=== PATIENT | male | born 1955 | race African-American/Black ===

== ENCOUNTER 2017-05-09 22:28 | Emergency (ER) | payer OTHER ==
[~2017-05-09] VITALS: Ht 182.9 cm; Wt 113.4 kg
[~2017-05-09 22:28] MED LIST: ALPR0.25 PO; BENZ100C PO; BUPR75TA6 PO; DIPH25CA58 PO; HYDR12.53 PO; HYDR25CA PO; LISI10TA2 PO; OXYC10TA PO; PRED20TA PO; VALIUM10 MG PO; ZOLP10TA PO
[2017-05-09 23:08] VITALS: BP 149/92
[2017-05-09] MEDS ORDERED: HYDROcodone/APAP 5/325MG 1 TAB TABLET PO ONE (23:30)
[2017-05-10] MEDS ORDERED: HYDR-971 PO (00:02)
--- NOTE | 2017-05-10 00:02 | PHYS DOC ---
Past Medical History Past Medical History: Anxiety, Bronchitis, COPD, Diabetes-Type II, DVT, Hypertension, P.U.D., Other Additional Past Medical Histor: EMPHESEMA, blood clots/PE,CHRONIC PAIN Past Surgical History: Other Additional Past Surgical Histo: PVD LASER SUGERY LT LEG, dilatation, peptic ulcer; urethral reconstruction Alcohol Use: Occasionally Drug Use: None Adult General Chief Complaint Chief Complaint: MECHANICAL FALL HPI HPI Patient is a 61 year old gentleman with history significant for hypertension and diabetes as well as a pulmonary embolism who is currently not on any anticoagulants presents to the ER today after falling off a partition wall while he is trying to jump over it. Patient reports that he currently has pain to his left lower extremities as well as his left chest. Patient denies any head trauma. Patient has any loss of consciousness. Patient denies any fevers shakes chills nausea vomiting diarrhea chest pain terns of breath cough cold Raynaud's except for the pain and discomfort to his left flank region from the fall. Patient does occasionally smoke and occasionally drinks. Patient reports he was drink a little bit of alcohol earlier tonight. Patient has any drugs. Exam was significant for tenderness to palpation to his left knee as well as left tib-fib region. Patient had no ligament is laxity. Patient has no knee effusion. Patient was ambulating on it without any difficulty. Patient does have tenderness to palpation to his left flank. Patient's workup was negative for any fractures. Patient had an x-ray of his left knee which was negative for fracture as interpreted by Dr. Chi Left tib-fib x-ray negative for fracture as interpreted by Dr. Chi Chest x-ray negative for any rib fracture or pneumothorax as interpreted by Dr. Chi Assessment and plan This 61-year-old gentleman who presents here today complaining of lower 70 pain and chest wall pain after a fall. Patient has no fractures noted on x-rays. Patient be discharged home on Lortab and follow-up with his doctor as scheduled tomorrow. Review of Systems Review of Systems Constitutional: Denies fever or chills [] Eyes: Denies change in visual acuity, redness, or eye pain [] All other review systems are negative except as documented in the history of present illness portion. Current Medications Current Medications Current Medications Medications (Trade) Dose Ordered Sig/Ashli Start Time Stop Time Status Last Admin Dose Admin Acetaminophen/ Hydrocodone Bitart (Lortab 5/325) 1 tab 1X ONCE 05/09/17 23:30 05/09/17 23:31 DC 05/09/17 23:13 1 TAB Allergies Allergies Allergies Coded Allergies Type Severity Reaction Last Updated Verified Iodinated Contrast- Oral and IV Dye Allergy Intermediate Hives 10/16/16 Yes Physical Exam Physical Exam Constitutional: Well developed, well nourished, no acute distress, non-toxic appearance. [] HENT: Normocephalic, atraumatic, bilateral external ears normal, oropharynx moist, no oral exudates, nose normal. [] Eyes: PERRLA, EOMI, conjunctiva normal, no discharge. [] Neck: Normal range of motion, no tenderness, supple, no stridor. [] Cardiovascular:Heart rate regular rhythm, no murmur [] Lungs & Thorax: Bilateral breath sounds clear to auscultation [] Abdomen: Bowel sounds normal, soft, no tenderness, no masses, no pulsatile masses. [] Skin: Warm, dry, no erythema, no rash. [] Back: No tenderness, no CVA tenderness. [] Extremities:see above Neurologic: Alert and oriented X 3, normal motor function, normal sensory function, no focal deficits noted. [] Psychologic: Affect normal, judgement normal, mood normal. [] Current Patient Data Vital Signs Vital Signs Date Time Temp Pulse Resp B/P (MAP) Pulse Ox O2 Delivery O2 Flow Rate FiO2 05/09/17 23:13 18 Room Air 05/09/17 23:08 98.5 74 149/92 (111) 95 98.5 EKG EKG [] Radiology/Procedures Radiology/Procedures [] Course & Med Decision Making Course & Med Decision Making Pertinent Labs and Imaging studies reviewed. (See chart for details) [] Dragon Disclaimer Dragon Disclaimer This electronic medical record was generated, in whole or in part, using a voice recognition dictation system. Departure Departure Impression: Primary Impression: Rib pain Additional Impressions: Left knee sprain Traumatic ecchymosis of left lower leg Disposition: 01 HOME, SELF-CARE Condition: IMPROVED Referrals: FRANCE WEN MD (PCP) Patient Instructions: Knee Sprain Scripts Hydrocodone/Apap 5-325 (NORCO 5-325 TABLET) 1 Each Tablet 1 TAB PO QID Y for PAIN, #10 TAB Prov: TIFFANY HUDDLESTON MD 05/10/17 Problem Qualifiers Additional Impressions: Left knee sprain Encounter type: initial encounter Involved ligament of knee: other ligament Qualified Codes: S83.8X2A - Sprain of other specified parts of left knee, initial encounter Traumatic ecchymosis of left lower leg Encounter type: initial encounter Qualified Codes: S80.12XA - Contusion of left lower leg, initial encounter TIFFANY HUDDLESTON MD May 10, 2017 00:02
[2017-05-10] MEDS ORDERED: HYDROcodone/APAP 5/325MG 1 TAB TABLET PO ONE (00:30)
--- NOTE | 2017-05-10 07:39 | RAD ---
EXAM: Chest 2 views. HISTORY: Trauma, fall. COMPARISON: None. FINDINGS: Frontal and lateral views of the chest are obtained. Hyperinflation is consistent with chronic obstructive pulmonary disease. There is mild chronic atelectasis or scarring in the left base. Enlargement of the pulmonary arteries suggests pulmonary arterial hypertension. There is no pneumothorax or pleural effusion. The heart is not enlarged. Mild superior plate wedging of multiple midthoracic vertebral bodies may be developmental or reflect chronic compression deformities. IMPRESSION: 1. Chronic obstructive pulmonary disease. No confluent infiltrates. Correlate for pulmonary arterial hypertension.
--- NOTE | 2017-05-10 07:41 | RAD ---
EXAM: 1. Left knee 3 views. 2. Left tibia/fibula 2 views. HISTORY: Trauma, fall. COMPARISON: None. FINDINGS: There are no fractures throughout. The joint spaces and alignment of the left knee are maintained. There is no joint effusion. The joint spaces and alignment of the ankle are also grossly maintained. Subcutaneous varicosities are noted. IMPRESSION: 1. No fracture.
== END 2017-05-10 00:30 | disposition home or self-care (01) ==
LOC: ER 22:28
DX: S83.92XA Sprain of unspecified site of left knee, initial encounter (principal); S80.12XA Contusion of left lower leg, initial encounter; R07.81 Pleurodynia; R07.89 Other chest pain; F41.9 Anxiety disorder, unspecified; E11.9 Type 2 diabetes mellitus without complications; I10 Essential (primary) hypertension; G89.29 Other chronic pain; J43.9 Emphysema, unspecified; I73.9 Peripheral vascular disease, unspecified; Z86.718 Personal history of other venous thrombosis and embolism; Z87.11 Personal history of peptic ulcer disease; Z86.711 Personal history of pulmonary embolism; Z91.041 Radiographic dye allergy status; W13.8XXA Fall from, out of or through other building or structure, initial encounter; Y93.39 Activity, other involving climbing, rappelling and jumping off; Y92.89 Other specified places as the place of occurrence of the external cause; Y99.8 Other external cause status
CPT/HCPCS: 71020; 73562; 73590; 99284-25

== ENCOUNTER 2018-10-02 14:45 | Emergency (ER) | payer OTHER ==
[~2018-10-02] VITALS: Ht 182.9 cm; Wt 113.4 kg
[~2018-10-02 14:45] MED LIST changes: +HYDR-971 PO
[2018-10-02] MEDS ORDERED: predniSONE 10 MG TABLET PO ONE (15:30)
[2018-10-02] MEDS ORDERED: IPRATRPIUM/ALBUTEROL 0.5/2.5MG 3 ML NEBU. NEB ONE (15:30)
--- NOTE | 2018-10-02 15:39 | RAD ---
PA and lateral chest. HISTORY: Productive cough, wheezing, short of breath, history COPD PA and lateral views the chest show mild apical scarring. Lungs are free of acute infiltrates. Heart is normal in size. There is no pleural effusion. IMPRESSION: 1. No acute infiltrates. Electronically signed by: Roman Hughes MD (10/02/2018 3:36 PM) [facility]
--- NOTE | 2018-10-02 15:45 | PHYS DOC ---
Past Medical History Past Medical History: Anxiety, Bronchitis, COPD, Diabetes-Type II, DVT, Hypertension, P.U.D., Other Additional Past Medical Histor: EMPHESEMA, blood clots/PE,CHRONIC PAIN Past Surgical History: Other Additional Past Surgical Histo: PVD LASER SUGERY LT LEG, dilatation, peptic ulcer; urethral reconstruction Alcohol Use: Occasionally Drug Use: None Adult General Chief Complaint Chief Complaint: COUGH HPI HPI Patient is a 62 year old male who presents with cough and shortness of breath. The patient has been having cough and cold symptoms that have been worsening over the past week. He is coughing up phlegm. The patient does have a history of smoking and COPD. He is currently homeless and has not been using inhalers. He denies fever or chest pain. Review of Systems Review of Systems Constitutional: Denies fever or chills [] Eyes: Denies change in visual acuity, redness, or eye pain [] HENT: See history of present illness Respiratory: See history of present illness Cardiovascular: No additional information not addressed in HPI [] GI: Denies abdominal pain, nausea, vomiting, bloody stools or diarrhea [] : Denies dysuria or hematuria [] Musculoskeletal: Denies back pain or joint pain [] Integument: Denies rash or skin lesions [] Neurologic: Denies headache, focal weakness or sensory changes [] Endocrine: Denies polyuria or polydipsia [] All other systems were reviewed and found to be within normal limits, except as documented in this note. Current Medications Current Medications Current Medications Medications (Trade) Dose Ordered Sig/Ashli Start Time Stop Time Status Last Admin Dose Admin Acetaminophen/ Hydrocodone Bitart (Lortab 5/325) 1 tab 1X ONCE 10/02/18 16:30 10/02/18 16:31 DC 10/02/18 16:56 1 TAB Albuterol/ Ipratropium (Duoneb) 3 ml 1X ONCE 10/02/18 15:30 10/02/18 15:31 DC 10/02/18 15:05 3 ML Prednisone (Prednisone) 50 mg 1X ONCE 10/02/18 15:30 10/02/18 15:31 DC 10/02/18 15:28 50 MG Allergies Allergies Allergies Coded Allergies Type Severity Reaction Last Updated Verified Iodinated Contrast- Oral and IV Dye Allergy Intermediate Hives 10/16/16 Yes Physical Exam Physical Exam Constitutional: Well developed, well nourished, no acute distress, non-toxic appearance. [] HENT: Normocephalic, atraumatic, bilateral tympanic membranes normal, oropharynx moist, no oral exudates, nares are erythematous bilaterally Eyes: PERRLA, EOMI, conjunctiva normal, no discharge. [] Neck: Normal range of motion, no tenderness, supple, no stridor. [] Cardiovascular:Heart rate regular rhythm, no murmur [] Lungs & Thorax: Bilateral breath sounds are decreased at bases Abdomen: Bowel sounds normal, soft, no tenderness, no masses, no pulsatile masses. [] Skin: Warm, dry, no erythema, no rash. [] Neurologic: Alert and oriented X 3, normal motor function, normal sensory function, no focal deficits noted. [] Psychologic: Affect normal, judgement normal, mood normal. [] Current Patient Data Vital Signs Vital Signs Date Time Temp Pulse Resp B/P (MAP) Pulse Ox O2 Delivery O2 Flow Rate FiO2 10/02/18 15:07 97 Room Air 10/02/18 14:58 99.1 101 20 157/90 (112) 99.1 EKG EKG [] Radiology/Procedures Radiology/Procedures []PATIENT: VANNESSA ZAMORAOUNT: [id number]#: [id number] : 1955 LOCATION: ER AGE: 62 SEX: M EXAM STATUS: REG ER ORD. PHYSICIAN: TANO RODAS APRN REASON: cough x 2 weeks PROCEDURE: CHEST PA & LATERAL PA and lateral chest. HISTORY: Productive cough, wheezing, short of breath, history COPD PA and lateral views the chest show mild apical scarring. Lungs are free of acute infiltrates. Heart is normal in size. There is no pleural effusion. IMPRESSION: 1. No acute infiltrates. Electronically signed by: Roman Hughes MD (10/02/2018 3:36 PM) [facility] DICTATED and SIGNED BY: ROMAN HUGHES MD DATE: 10/02/18 1535 Course & Med Decision Making Course & Med Decision Making Pertinent Labs and Imaging studies reviewed. (See chart for details) []The patient was given prednisone and a breathing treatment in the emergency department. His breath sounds are clear following this treatment. He will be discharged home with an inhaler. He ate a meal while he was in the emergency department. He states that his sister will be able to pick him up. Jason Disclaimer Jason Disclaimer This electronic medical record was generated, in whole or in part, using a voice recognition dictation system. Departure Departure Impression: Primary Impression: Cough Disposition: HOME, SELF-CARE Condition: STABLE Referrals: JAZ KINSEY (PCP) Patient Instructions: Cough, Adult Additional Instructions: Use the inhaler for shortness of breath. Follow-up with your primary care provider for recheck in 2 days if not improving or return to the emergency department if worsening. Scripts Albuterol Sulfate (PROAIR HFA INHALER) 8.5 Gm Hfa.aer.ad 1 PUFF INH PRN Q6HRS PRN for SHORTNESS OF BREATH, #1 INHALER 0 Refills Prov: TANO RODAS APRN 10/02/18 TANO RODAS APRN Oct 02, 2018 15:45
[2018-10-02] MEDS ORDERED: HYDROcodone/APAP 5/325MG 1 TAB TABLET PO ONE (16:30)
[2018-10-02] MEDS ORDERED: PROAIR HFA8.5 GM INH (16:35)
[2018-10-02 17:00] VITALS: BP 140/76
== END 2018-10-02 17:01 | disposition home or self-care (01) ==
LOC: ER 14:45
DX: R05 Cough (principal); R06.02 Shortness of breath; E11.9 Type 2 diabetes mellitus without complications; I10 Essential (primary) hypertension; G89.29 Other chronic pain; J43.9 Emphysema, unspecified; Z86.718 Personal history of other venous thrombosis and embolism; Z91.041 Radiographic dye allergy status
CPT/HCPCS: 71046; 94640; 99284; J7512; J7620

== ENCOUNTER 2019-07-17 13:05 | Emergency (ER) | payer MEDICAID, OTHER ==
[~2019-07-17] VITALS: Ht 182.9 cm; Wt 99.8 kg
[~2019-07-17 13:05] MED LIST changes: +ALBU2.5V8 INH; +HYDR-3164 PO; -HYDR-971 PO; -HYDR12.53 PO; +HYDR12.575 PO
[2019-07-17 14:18] VITALS: BP 160/94
--- NOTE | 2019-07-17 14:29 | PHYS DOC ---
Past Medical History Past Medical History: Anxiety, Bronchitis, COPD, Diabetes-Type II, DVT, H ypertension, P.U.D., Other Additional Past Medical Histor: EMPHESEMA, blood clots/PE,CHRONIC PAIN Past Surgical History: Other Additional Past Surgical Histo: PVD LASER SUGERY LT LEG, dilatation, peptic ulcer; urethral reconstruction Alcohol Use: Occasionally Drug Use: None Adult General Chief Complaint Chief Complaint: WOUND CHECK HPI HPI Patient is a 63 year old male presents to the ED to have his medical records sent to the Health dept so he can donate plasma. Patient has a history of chronic venous insufficiency. States that they want his full medical records that are up-to-date sent to the donation center in order for him to donate plasma.Patient does not have a PCP. Complains of no symptoms. Review of Systems Review of Systems Constitutional: Denies fever or chills [] Eyes: Denies change in visual acuity, redness, or eye pain [] HENT: Denies nasal congestion or sore throat [] Respiratory: Denies cough or shortness of breath [] Cardiovascular: No additional information not addressed in HPI [] GI: Denies abdominal pain, nausea, vomiting, bloody stools or diarrhea [] : Denies dysuria or hematuria [] Musculoskeletal: Denies back pain or joint pain [] Integument: Denies rash or skin lesions [] Neurologic: Denies headache, focal weakness or sensory changes [] Endocrine: Denies polyuria or polydipsia [] All other systems were reviewed and found to be within normal limits, except as documented in this note. Allergies Allergies Allergies Coded Allergies Type Severity Reaction Last Updated Verified Iodinated Contrast Media Allergy Intermediate Hives 10/16/16 Yes Physical Exam Physical Exam Constitutional: Well developed, well nourished, no acute distress, non-toxic appearance. [] HENT: Normocephalic, atraumatic Skin: Warm, dry, no erythema, no rash. [] Back: No tenderness, no CVA tenderness. [] Extremities: No tenderness, no cyanosis, no clubbing, ROM intact, no edema. [] Neurologic: Alert and oriented X 3, normal motor function, normal sensory function, no focal deficits noted. [] Psychologic: Affect normal, judgement normal, mood normal. [] EKG EKG [] Radiology/Procedures Radiology/Procedures [] Course & Med Decision Making Course & Med Decision Making Pertinent Labs and Imaging studies reviewed. (See chart for details) []Provided PCP list for patient to make an appointment and establish under a PCP in order to have his records sent to plasma donation center. Patient has no physical complaints. Dragon Disclaimer Dragon Disclaimer This electronic medical record was generated, in whole or in part, using a voice recognition dictation system. Departure Departure Impression: Primary Impression: Medical report requested Disposition: HOME, SELF-CARE Condition: IMPROVED Referrals: NO PCP (PCP) JOSE CURIEL MD Patient Instructions: Medical Screening Exam SANTI KENNY Jul 17, 2019 14:29
== END 2019-07-17 14:35 | disposition home or self-care (01) ==
LOC: ER 13:05
DX: Z02.79 Encounter for issue of other medical certificate (principal); E11.9 Type 2 diabetes mellitus without complications; F41.9 Anxiety disorder, unspecified; J44.9 Chronic obstructive pulmonary disease, unspecified; I10 Essential (primary) hypertension; Z86.718 Personal history of other venous thrombosis and embolism; G89.29 Other chronic pain; Z91.041 Radiographic dye allergy status
CPT/HCPCS: 99284

== ENCOUNTER 2020-01-08 09:06 | Emergency (ER) | payer MEDICAID ==
[~2020-01-08] VITALS: Ht 182.9 cm; Wt 109.0 kg
--- NOTE | 2020-01-08 10:36 | PHYS DOC ---
Past Medical History Past Medical History: Anxiety, Bronchitis, COPD, Diabetes-Type II, DVT, H ypertension, P.U.D., Other Additional Past Medical Histor: EMPHESEMA, blood clots/PE,CHRONIC PAIN Past Surgical History: Other Additional Past Surgical Histo: PVD LASER SUGERY LT LEG, dilatation, peptic ulcer; urethral reconstruction Smoking Status: Current Every Day Smoker Alcohol Use: Occasionally Drug Use: None Adult General Chief Complaint Chief Complaint: FLU SYMPTOM HPI HPI Patient is a 64 year old male who presents with headache, cough, runny nose, body aches, fatigue that started yesterday. The patient also states that he has been out of his blood pressure medicine. The patient denies any symptoms related to blood pressure. He denies blurry vision or nausea. Reports he struggles with chronic pain is also requesting a narcotic refill due to chronic back pain. Complete ROS were reviewed and found to be within normal limits, except as documented in the HPI Current Medications Current Medications Current Medications Medications (Trade) Dose Ordered Sig/Ashli Start Time Stop Time Status Last Admin Dose Admin Lisinopril (Prinivil) 20 mg 1X STAT 01/08/20 10:29 01/08/20 10:34 DC 01/08/20 10:39 20 MG Allergies Allergies Allergies Coded Allergies Type Severity Reaction Last Updated Verified Iodinated Contrast Media Allergy Intermediate Hives 10/16/16 Yes Physical Exam Physical Exam Constitutional: Well developed, well nourished, no acute distress, non-toxic appearance. [] HENT: Normocephalic, atraumatic, bilateral external ears normal, bilateral tympanic membranes are pearly saucedo, oropharynx moist, no oral exudates, nose turbinates are inflamed. Eyes: PERRLA, EOMI, conjunctiva normal, no discharge. [] Neck: Normal range of motion, no tenderness, supple, no stridor. [] Cardiovascular:Heart rate regular rhythm, no murmur [] Lungs & Thorax: Bilateral breath sounds clear to auscultation [] Abdomen: Bowel sounds normal, soft, no tenderness, no masses, no pulsatile masses. [] Skin: Warm, dry, no erythema, no rash. [] Neurologic: Alert and oriented X 3, normal motor function, normal sensory function, no focal deficits noted. [] Psychologic: Affect normal, judgement normal, mood normal. [] Current Patient Data Vital Signs Vital Signs Date Time Temp Pulse Resp B/P (MAP) Pulse Ox O2 Delivery O2 Flow Rate FiO2 01/08/20 11:28 76 177/79 (111) 01/08/20 10:27 16 95 Room Air 01/08/20 10:08 98.1 98.1 Lab Values Laboratory Tests Test 01/08/20 10:20 Influenza Type A Antigen Negative (NEGATIVE) Influenza Type B Antigen Negative (NEGATIVE) EKG EKG [] Radiology/Procedures Radiology/Procedures [][facility] [address] [place] [address] IMAGING REPORT Signed PATIENT: VANNESSA ZAMORA ACCOUNT: [id number] : 1955 LOCATION: ER AGE: 64 SEX: M EXAM STATUS: REG ER ORD. PHYSICIAN: JOSE HURST APRN REASON: coughX 1MONTH PROCEDURE: CHEST PA & LATERAL CHEST PA LATERAL Clinical indications: Cough for a month COMPARISON: October 02, 2018. Findings: Hyperinflation is seen consistent with COPD. No acute lung infiltrate or pleural effusion or pulmonary edema or lung mass or pneumothorax is seen. The heart size, pulmonary vasculature, mediastinum and both josh are unremarkable. The osseous structures appear intact. Impression: COPD. No acute radiographic abnormality is seen. Electronically signed by: Nivia Newsome MD (01/08/2020 10:52 AM) [facility] DICTATED and SIGNED BY: NIVIA NWESOME MD DATE: 01/08/20 1052 Course & Med Decision Making Course & Med Decision Making Pertinent Labs and Imaging studies reviewed. (See chart for details) Will give 20 mg of Lisinopril as this is what patient states he is supposed to be on. Will also write a 30 day supply and discussed that he needs to follow up with a primary care provider. Will get flu test and chest x-ray. FLU and Chest x-ray are unremarkable. Patient appears to have an URI. Dragon Disclaimer Dragon Disclaimer This electronic medical record was generated, in whole or in part, using a voice recognition dictation system. Departure Departure Impression: Primary Impression: Medication refill Additional Impression: Bronchitis Disposition: HOME, SELF-CARE Condition: STABLE Referrals: NO PCP (PCP) Patient Instructions: Medication Refill, Emergency Department Additional Instructions: Thank you for visiting [facility]. We appreciate you trusting us with your care. If any additional problems come up don't hesitate to return to visit us. Please follow up with your primary care provider so they can plan additional care if needed and know about the problem that you had. If symptoms worsen come back to the Emergency Department. Any concerning symptoms that start such as chest pain, shortness of air, weakness or numbness on one side of the body, running high fevers or any other concerning symptoms return to the ER. Please fill your medications at any pharmacy and follow the prescription instructions. Please go to your primary care doctor in the future for refills. Please drink plenty of fluids. If unable to keep fluids down please return to ER. Please get Tylenol and Ibuprofen over the counter. Give each medication every 6 hours as directed by the medication labels. In order to utilize the peak of the medications stagger the medications to where the child is getting one of the medications every 3 hours. For example if you give Ibuprofen at 3 PM, you then give Tylenol at 6 PM and Ibuprofen again at 9 PM, and then Tylenol at midnight. Please get Zyrtec over the counter and take per label instructions for runny nose. Scripts Albuterol Sulfate (PROAIR HFA INHALER) 8.5 Gm Hfa.aer.ad 2 PUFF IH PRN Q4-6HRS PRN for wheezing for 21 Days, #1 INHALER 0 Refills Prov: JOSE HURST APRN 01/08/20 Lisinopril (LISINOPRIL) 20 Mg Tablet 1 TAB PO DAILY, #30 TAB 0 Refills Prov: JOSE HURST APRN 01/08/20 Problem Qualifiers JOSE HURST APRN Jan 08, 2020 10:36
[2020-01-08] MEDS: LISINOPRIL 10 MG TABLET PO STA (10:39)
--- NOTE | 2020-01-08 10:55 | RAD ---
CHEST PA LATERAL Clinical indications: Cough for a month COMPARISON: October 02, 2018. Findings: Hyperinflation is seen consistent with COPD. No acute lung infiltrate or pleural effusion or pulmonary edema or lung mass or pneumothorax is seen. The heart size, pulmonary vasculature, mediastinum and both josh are unremarkable. The osseous structures appear intact. Impression: COPD. No acute radiographic abnormality is seen. Electronically signed by: Lti Newsome MD (01/08/2020 10:52 AM) [facility]
[2020-01-08 11:17] LABS: INFLUENZA A PATIENT NEGATIVE (NEGATIVE); INFLUENZA B PATIENT NEGATIVE (NEGATIVE)
[2020-01-08] MEDS ORDERED: LISI-334 PO (11:25)
[2020-01-08 11:28] VITALS: BP 177/79
[2020-01-08] MEDS ORDERED: ALBU2.5V8 IH (11:31)
== END 2020-01-08 11:40 | disposition home or self-care (01) ==
LOC: ER 09:06
DX: J44.9 Chronic obstructive pulmonary disease, unspecified (principal); Z76.0 Encounter for issue of repeat prescription; E11.9 Type 2 diabetes mellitus without complications; I10 Essential (primary) hypertension; G89.29 Other chronic pain; Z86.718 Personal history of other venous thrombosis and embolism; F17.200 Nicotine dependence, unspecified, uncomplicated; Z91.041 Radiographic dye allergy status
CPT/HCPCS: 71046; 87804; 99284

== ENCOUNTER 2020-12-27 11:28 | Inpatient (IN) | payer MEDICAID ==
[~2020-12-27] VITALS: Ht 182.9 cm; Wt 109.2 kg
[~2020-12-27 11:28] MED LIST changes: +ALBU2.5V8 IH; +LISI10TA16 PO; -LISI10TA2 PO; +LISI20TA18 PO
--- NOTE | 2020-12-27 12:02 | ED.ADGEN ---
Past Medical History Past Medical History: Anxiety, Bronchitis, COPD, Diabetes-Type II, DVT, Hypertension, P.U.D., Other Additional Past Medical Histor: Emphysema, blood clots/PE,CHRONIC PAIN, collapsed lung Past Surgical History: Other Additional Past Surgical Histo: PVD LASER SUGERY LT LEG, dilatation, peptic ulcer; urethral reconstruction Smoking Status: Current Some Day Smoker Alcohol Use: Occasionally Drug Use: None General Adult EDM: Chief Complaint: MULTIPLE COMPLAINTS HPI: HPI: Patient is a 65 year old AA male who presents to the ER with complaints of swelling in both of his hands and legs, shortness of breath, body aches, and upper abdominal pain for several days. Pt reports sx for at least a week. He denies any chest pain, palpitations, nausea, vomiting, diarrhea, cough, or dizziness. Pt complains of R ear pain and sinus pressure. Pt states that he lost his PCP last year and has not had a routine physical in over a year. He reports that his blood pressure has been high recently and requests a refill of his blood pressure medication Lisinopril. Pt describes his abdominal pain pain as a burning sensation. He currently rates his pain a 8/10 on the pain scale, he denies any alleviating or exacerbating factors. Review of Systems: Review of Systems: Complete ROS is negative unless otherwise documented in the HPI Current Medications: Current Medications Medications (Trade) Dose Ordered Sig/Ashli Start Time Stop Time Status Last Admin Dose Admin Ceftriaxone Sodium (Rocephin) 1 gm 1X ONCE 12/27/20 12:30 12/27/20 12:31 DC 12/27/20 12:52 1 GM Diphenhydramine HCl (Benadryl) 50 mg 1X ONCE 12/27/20 13:30 12/27/20 13:31 DC 12/27/20 13:53 50 MG Famotidine (Pepcid Vial) 20 mg 1X ONCE 12/27/20 12:30 12/27/20 12:31 DC 12/27/20 13:00 20 MG Fentanyl Citrate (Fentanyl 2ml Vial) 50 mcg 1X ONCE 12/27/20 12:15 12/27/20 12:16 DC 12/27/20 13:03 50 MCG Info (CONTRAST GIVEN -- Rx MONITORING) 1 each PRN DAILY PRN 12/27/20 14:15 12/29/20 14:14 Iohexol (Omnipaque 350 Mg/ml) 100 ml 1X ONCE 12/27/20 14:00 12/27/20 14:05 DC 12/27/20 14:15 100 ML Methylprednisolone Sodium Succinate (SOLU-Medrol 125MG VIAL) 125 mg 1X ONCE 12/27/20 13:30 12/27/20 13:31 DC 12/27/20 13:56 125 MG Ondansetron HCl (Zofran) 4 mg 1X ONCE 12/27/20 12:15 12/27/20 12:16 DC 12/27/20 12:58 4 MG Allergies: Allergies: Allergies Coded Allergies Type Severity Reaction Last Updated Verified Iodinated Contrast Media Allergy Intermediate Hives 12/27/20 Yes Physical Exam: PE: Constitutional: Well developed, well nourished, no acute distress, non-toxic appearance. [] HENT: Normocephalic, atraumatic, bilateral external ears normal, bilateral TMs normal, oropharynx moist, no oral exudates, nose normal. [] Eyes: PERRLA, EOMI, conjunctiva normal, no discharge. [] Neck: Normal range of motion, supple, no stridor. [] Cardiovascular:Heart rate regular rhythm Lungs & Thorax: respirations even and unlabored, speaking full sentences, occasional expiratory wheeze Abdomen:soft, epigastricTTP, no rebound tenderness, no guarding, no masses, no pulsatile masses. [] Skin: Warm, dry, no erythema, no rash. [] Extremities: BLE: No tenderness, no cyanosis, no clubbing, ROM intact, 3+ edema; 1+ edema of bilateral hands Neurologic: Alert and oriented X 3, normal motor function, normal sensory function, no focal deficits noted. [] Psychologic: Affect normal, judgement normal, mood normal. [] Current Patient Data: Labs: Laboratory Tests Test 12/27/20 11:35 12/27/20 12:10 Urine Collection Type Unknown Urine Color Yellow Urine Clarity Clear Urine pH 6.0 (<5.0-8.0) Urine Specific [place] 1.015 (1.000-1.030) Urine Protein Negative mg/dL (NEG-TRACE) Urine Glucose (UA) Negative mg/dL (NEG) Urine Ketones (Stick) Negative mg/dL (NEG) Urine Blood Trace (NEG) Urine Nitrite Negative (NEG) Urine Bilirubin Negative (NEG) Urine Urobilinogen Dipstick 1.0 mg/dL (0.2 mg/dL) Urine Leukocyte Esterase Moderate (NEG) Urine RBC 1-2 /HPF (0-2) Urine WBC 11-20 /HPF (0-4) Urine Squamous Epithelial Cells Few /LPF Urine Bacteria Few /HPF (0-FEW) Urine Opiates Screen Neg (NEG) Urine Methadone Screen Neg (NEG) Urine Barbiturates Neg (NEG) Urine Phencyclidine Screen Neg (NEG) Urine Amphetamine/Methamphetamine Neg (NEG) Urine Benzodiazepines Screen Neg (NEG) Urine Cocaine Screen Pos (NEG) Urine Cannabinoids Screen Neg (NEG) Urine Ethyl Alcohol Neg (NEG) White Blood Count 6.2 x10^3/uL (4.0-11.0) Red Blood Count 4.27 x10^6/uL (4.30-5.70) L Hemoglobin 13.3 g/dL (13.0-17.5) Hematocrit 40.6 % (39.0-53.0) Mean Corpuscular Volume 95 fL (79-100) Mean Corpuscular Hemoglobin 31 pg (25-35) Mean Corpuscular Hemoglobin Concent 33 g/dL (31-37) Red Cell Distribution Width 14.4 % (11.5-14.5) Platelet Count 166 x10^3/uL (140-400) Neutrophils (%) (Auto) 65 % (31-73) Lymphocytes (%) (Auto) 20 % (24-48) L Monocytes (%) (Auto) 12 % (0-9) H Eosinophils (%) (Auto) 3 % (0-3) Basophils (%) (Auto) 0 % (0-3) Neutrophils # (Auto) 4.1 x10^3/uL (1.8-7.7) Lymphocytes # (Auto) 1.2 x10^3/uL (1.0-4.8) Monocytes # (Auto) 0.7 x10^3/uL (0.0-1.1) Eosinophils # (Auto) 0.2 x10^3/uL (0.0-0.7) Basophils # (Auto) 0.0 x10^3/uL (0.0-0.2) D-Dimer (Rosalinda) 1.86 ug/mlFEU (0.00-0.50) H Sodium Level 143 mmol/L (136-145) Potassium Level 4.0 mmol/L (3.5-5.1) Chloride Level 106 mmol/L (98-107) Carbon Dioxide Level 26 mmol/L (21-32) Anion Gap 11 (6-14) Blood Urea Nitrogen 19 mg/dL (8-26) Creatinine 1.2 mg/dL (0.7-1.3) Estimated GFR (Cockcroft-Gault) 73.3 BUN/Creatinine Ratio 16 (6-20) Glucose Level 84 mg/dL (70-99) Calcium Level 8.2 mg/dL (8.5-10.1) L Magnesium Level 2.1 mg/dL (1.8-2.4) Total Bilirubin 0.6 mg/dL (0.2-1.0) Aspartate Amino Transferase (AST) 19 U/L (15-37) Alanine Aminotransferase (ALT) 30 U/L (16-63) Alkaline Phosphatase 105 U/L (46-116) Creatine Kinase 233 U/L (39-308) Creatine Kinase MB (Mass) 0.9 ng/mL (0.0-3.6) Creatine Kinase MB Relative Index 0.4 % (0-4) Troponin I Quantitative < 0.017 ng/mL (0.000-0.055) SO-Hfs-K-Type Natriuretic Peptide 822 pg/mL (0-124) H Total Protein 6.9 g/dL (6.4-8.2) Albumin 3.4 g/dL (3.4-5.0) Albumin/Globulin Ratio 1.0 (1.0-1.7) Lipase 56 U/L (73-393) L Laboratory Tests 12/27/20 12:10 Laboratory Tests 12/27/20 12:10 Vital Signs: Vital Signs Date Time Temp Pulse Resp B/P (MAP) Pulse Ox O2 Delivery O2 Flow Rate FiO2 12/27/20 16:18 64 22 98 Nasal Cannula 2.0 12/27/20 15:47 141/97 (112) 12/27/20 11:34 98.1 98.1 EKG: EK- Sinus rhythm rate 95, no STEMI read by Dr. Buitrago[] Heart Score: Risk Factors: Risk Factors: DM, Current or recent (<one month) smoker, HTN, HLP, family history of CAD, obesity. Risk Scores: Score 0 - 3: 2.5% MACE over next 6 weeks - Discharge Home Score 4 - 6: 20.3% MACE over next 6 weeks - Admit for Clinical Observation Score 7 - 10: 72.7% MACE over next 6 weeks - Early Invasive Strategies Radiology/Procedures: Radiology/Procedures: PROCEDURE: CHEST AP ONLY INDICATION: Reason: chest pain / Spl. Instructions: / History: COMPARISON: December 2019 FINDINGS: Single view of chest obtained. Cardiomediastinal silhouette is near the upper limits of normal in size. Coarsened lung markings bilaterally with mild interstitial opacity. IMPRESSION: * Mild interstitial opacities bilaterally which could be from pulmonary edema or interstitial infiltrate.[] PROCEDURE: CT ANGIOGRAPHY CHEST EXAM: CT chest with contrast - pulmonary embolus protocol CLINICAL HISTORY: Shortness of air, elevated d-dimer COMPARISON: None. TECHNIQUE: CT of the chest following the administration of intravenous contrast during the pulmonary arterial phase. Axial, coronal and sagittal reformatted images were generated including MIP images. ---PQRS compliance statement - One or more of the following individualized dose reduction techniques were utilized for this study: 1. Automated exposure control 2. Adjustment of the mA and/or kV according to patient size 3. Use of iterative reconstruction technique--- FINDINGS: CHEST: Diagnostic quality: Adequate. Pulmonary emboli: Pulmonary arterial filling defects are seen bilaterally, the majority. Linear and eccentric, likely chronic however subcutaneous pulmonary emboli are also seen. Fitness Worker pulmonary emboli including within a superior segmental pulmonary artery of the left lower lobe there is a filling defect with distal pruning of the pulmonary arteries. Filling defects are also seen within several left lower lobe subsegmental-subsegmental pulmonary arteries, for example series 3 image 118. Additionally right upper lobe filling defects are also seen. Right heart strain: None Pulmonary arteries: Normal in caliber. Right hilar lymphadenopathy is seen, for example a 3.7 x 2.3 cm right hilar lymph node (series 3 image 78) is seen. Left hilar lymphadenopathy is also seen, for example a dental detail representative left hilar lymph node measures 2 x 1.3 cm. No axillary lymphadenopathy. Heart is not enlarged. No pericardial effusion. No pleural effusion or pneumothorax. Prominence of pulmonary arterial trunk may be seen with pulmonary arterial hypertension. Background of emphysematous changes are seen. For example opacities in the peripheral left lower lobe posterolaterally, possibly parenchymal infarct or focal atelectasis/developing consolidative process. Visualized Upper abdomen: Moderate to large volume colonic stool content. Bones: No aggressive osseous lesion is seen. IMPRESSION: 1. Bilateral pulmonary emboli are seen, many of which appear chronic with distal tapering of the pulmonary arteries however several acute pulmonary emboli are also suspected. No definite evidence for right heart strain 2. Wedge-shaped parenchymal opacities in the peripheral left lower lobe may represent parenchymal infarct although atelectasis or developing consolidation although this appearance. 3. Background of emphysematous changes. Findings discussed with emergency room physician at 12/27/2020 4:37 PM. PROCEDURE: VENOUS LOWER EXT BILATERAL US BILATERAL LOWEREXTREMITY VENOUS DOPPLER History: Reason: BLE edema, elevated d-dimer, hx dvt / Spl. Instructions: / History: Comparison: None. Discussion: Multiple longitudinal and transverse high resolution real-time images of the venous system of bilateral lower extremity were obtained with color and Doppler sampling. The common femoral, superficial femoral, popliteal and proximal calf veins are all patent and demonstrate normal flow and compressibility. Normal respiratory phasicity and augmentation is present. Impression: 1. No evidence of deep vein thrombosis. Course & Med Decision Making: Course & Med Decision Making Pertinent Labs and Imaging studies reviewed. (See chart for details) 1637- Received verbal report from radiologist about chronic and acute appearing PEs on CTA chest. 1641-spoke with Dr. Lewis who is the admitting physician, and care was assumed following discussion of patient. Will admit pt to to tele for PUI, bilateral PEs, and CHF. Will initiate heparin protocol for PE Patient's vital signs stable. Patient remains afebrile, appears nontoxic, respirations even and unlabored. Patient will be admitted to the tele floor. Patient's case and plan of care also discussed with Dr. Buitrago In regards to radiologists' reading "Findings discussed with emergency room physician at 12/27/2020 4:37 PM" - radiologist spoke to my HEAD COUNSELOR, not myself. [place] Disclaimer: Jason Disclaimer: This electronic medical record was generated, in whole or in part, using a voice recognition dictation system. Departure Departure Impression: Primary Impression: Person under investigation for COVID-19 Additional Impressions: Bilateral pulmonary embolism CHF (congestive heart failure) Disposition: 09 ADMITTED INPT THIS HOSP Admitting Physician: JO-ANN (Joshua) Condition: STABLE Referrals: NO PCP (PCP) Problem Qualifiers Additional Impressions: CHF (congestive heart failure) Heart failure type: unspecified Heart failure chronicity: unspecified Qualified Codes: I50.9 - Heart failure, unspecified JUAN HAWKINS APRN Dec 27, 2020 12:02 ELSI BUITRAGO DO Dec 27, 2020 20:04
[2020-12-27 12:04] LABS: BILIRUBIN,URINE NEGATIVE (NEG); CLARITY,URINE CLEAR; COLOR,URINE YELLOW; NITRITE,URINE NEGATIVE (NEG); PROTEIN,URINE NEGATIVE (NEG-TRACE)
[2020-12-27 12:11] LABS: BARBITURATES NEG (NEG); BENZODIAZEPINES NEG (NEG); CANNABINOIDS NEG (NEG); COCAINE POS (NEG); METHADONE NEG (NEG); OPIATES NEG (NEG); PHENCYCLIDINE NEG (NEG)
[2020-12-27 12:13] LABS: AMPHETAMINE/METHAMPHETAMINE NEG (NEG)
[2020-12-27] MEDS ORDERED: fentaNYL PF VIAL 100 MCG/2 ML VIAL IV ONE (12:15)
[2020-12-27] MEDS ORDERED: ONDANSETRON PF 4 MG/2 ML VIAL. IV ONE (12:15)
[2020-12-27 12:25] LABS: BACTERIA,URINE FEW /HPF (0-FEW)
--- NOTE | 2020-12-27 12:26 | RAD ---
INDICATION: Reason: chest pain / Spl. Instructions: / History: COMPARISON: December 2019 FINDINGS: Single view of chest obtained. Cardiomediastinal silhouette is near the upper limits of normal in size. Coarsened lung markings bila terally with mild interstitial opacity. IMPRESSION: * Mild interstitial opacities bilaterally which could be from pulmonary edema or interstitial infilt rate. Electronically signed by: Jimenez Garcia MD (12/27/2020 12:23 PM) [id number]
[2020-12-27] MEDS ORDERED: FAMOTIDINE 20 MG/2 ML VIAL IVP ONE (12:30)
[2020-12-27] MEDS ORDERED: cefTRIAXone IV Push 1 GM VIAL. IVP ONE (12:30)
[2020-12-27 12:31] LABS: BASO % 0 % (0-3); EOS # 0.2 x10^3/uL (0.0-0.7); EOS % 3 % (0-3); HEMATOCRIT 40.6 % (39.0-53.0); HEMOGLOBIN 13.3 g/dL (13.0-17.5); LYMPH # 1.2 x10^3/uL (1.0-4.8); LYMPH % 20 % (24-48); MEAN CORPUSCULAR HEMOGLOBIN 31 pg (25-35); MEAN CORPUSCULAR HGB CONC 33 g/dL (31-37); MEAN CORPUSCULAR VOLUME 95 fL (79-100); MONO # 0.7 x10^3/uL (0.0-1.1); MONO % 12 % (0-9); NEUT # 4.1 x10^3/uL (1.8-7.7); NEUT % 65 % (31-73); PLATELET COUNT 166 x10^3/uL (140-400); RED BLOOD COUNT 4.27 x10^6/uL (4.30-5.70); RED CELL DISTRIBUTION WIDTH 14.4 % (11.5-14.5); WHITE BLOOD COUNT 6.2 x10^3/uL (4.0-11.0)
[2020-12-27 12:42] LABS: CALCIUM 8.2 mg/dL (8.5-10.1); CREATININE 1.2 mg/dL (0.7-1.3); GFR 73.3
[2020-12-27 12:49] LABS: ALBUMIN 3.4 g/dL (3.4-5.0); MAGNESIUM 2.1 mg/dL (1.8-2.4); TOTAL BILIRUBIN 0.6 mg/dL (0.2-1.0); TOTAL PROTEIN 6.9 g/dL (6.4-8.2)
[2020-12-27] MEDS ORDERED: methylPREDNISolone SOD SUCC PF 125 MG/2 ML VIAL. IV ONE (13:30)
[2020-12-27] MEDS ORDERED: diphenhydrAMINE 50 MG/ML VIAL IVP ONE (13:30)
[2020-12-27] MEDS ORDERED: IOHEXOL 350 MG/ML 100 ML VIAL. IV ONE (14:00)
--- NOTE | 2020-12-27 14:12 | RAD ---
US BILATERAL LOWEREXTREMITY VENOUS DOPPLER History: Reason: BLE edema, elevated d-dimer, hx dvt / Spl. Instructions: / History: Comparison: None. Discussion: Multiple longitudinal and transverse high resolution real-time images of the [facility] lower extremity were obtained with color and Doppler sampling. The common femoral, superficial fem oral, popliteal and proximal calf veins are all patent and demonstrate normal flow and compressibilit y. Normal respiratory phasicity and augmentation is present. Impression: 1. No evidence of deep vein thrombosis. Electronically signed by: Catalino Cee DO (12/27/2020 2:10 PM) [id number]
[2020-12-27] MEDS ORDERED: CONTRAST GIVEN. MC PRN (14:15)
--- NOTE | 2020-12-27 16:40 | RAD ---
EXAM: CT chest with contrast - pulmonary embolus protocol CLINICAL HISTORY: Shortness of air, elevated d-dimer COMPARISON: None. TECHNIQUE: CT of the chest following the administration of intravenous contrast during the pulmonary arterial phase. Axial, coronal and sagittal reformatted images were generated including MIP images. ---PQRS compliance statement - One or more of the following individualized dose reduction techniques were utilized for this study: 1. Automated exposure control 2. Adjustment of the mA and/or kV according to patient size 3. Use of iterative reconstruction technique--- FINDINGS: CHEST: Diagnostic quality: Adequate. Pulmonary emboli: Pulmonary arterial filling defects are seen bilaterally, the majority. Linear and e ccentric, likely chronic however subcutaneous pulmonary emboli are also seen. Acting Professor pulmonar y emboli including within a superior segmental pulmonary artery of the left lower lobe there is a sonia ling defect with distal pruning of the pulmonary arteries. Filling defects are also seen within sever al left lower lobe subsegmental-subsegmental pulmonary arteries, for example series 3 image 118. Dheeraj tionally right upper lobe filling defects are also seen. Right heart strain: None Pulmonary arteries: Normal in caliber. Right hilar lymphadenopathy is seen, for example a 3.7 x 2.3 cm right hilar lymph node (series 3 imag e 78) is seen. Left hilar lymphadenopathy is also seen, for example a inside sales account representative left hilar lymph node measures 2 x 1.3 cm. No axillary lymphadenopathy. Heart is not enlarged. No pericardial effusion. No pleural effusion or pneumothorax. Prominence of pu lmonary arterial trunk may be seen with pulmonary arterial hypertension. Background of emphysematous changes are seen. For example opacities in the peripheral left lower lobe posterolaterally, possibly parenchymal infarct or focal atelectasis/developing consolidative process . Visualized Upper abdomen: Moderate to large volume colonic stool content. Bones: No aggressive osseous lesion is seen. IMPRESSION: 1. Bilateral pulmonary emboli are seen, many of which appear chronic with distal tapering of the pul monary arteries however several acute pulmonary emboli are also suspected. No definite evidence for r ight heart strain 2. Wedge-shaped parenchymal opacities in the peripheral left lower lobe may represent parenchymal in farct although atelectasis or developing consolidation although this appearance. 3. Background of emphysematous changes. Findings discussed with emergency room physician at 12/27/2020 4:37 PM. FOR INTERNAL CODING PURPOSES RESULT CODE: (C) Electronically signed by: Puma Ospina MD (12/27/2020 4:38 PM) [email or web address]
[2020-12-27] MEDS ORDERED: HEPARIN for IV BOLUS 10,000 UNIT/10 ML VIAL. IV PRN ×2 (16:45)
[2020-12-27] MEDS ORDERED: HEPARIN for IV BOLUS 10,000 UNIT/10 ML VIAL. IV ONE (16:45)
[2020-12-27] MEDS: HEPARIN 25,000UTS/250ML PREMIX 250 ML IV PRN (17:22)
[2020-12-27 18:15] VITALS: BP 151/107
--- NOTE | 2020-12-27 19:25 | EKG ---
[facility] [address] [place] [id number] Test Date: 2020-12-27 Test Time: 11:51:41 Pat Name: VANNESSA ZAMORA Department: Room: [facility] Gender: M Pediatric Neurologist: : 1955 Requested By: JUAN HAWKINS Order Number: [id number] Reading MD: Shoaib Rosado Measurements Intervals [place] Rate: 95 P: 66 AK: 130 QRS: 42 QRSD: 80 T: 74 QT: 352 QTc: 446 Interpretive Statements SINUS RHYTHM NORMAL ECG Electronically Signed On 01-07-2021 14:49:41 DEICER INSPECTOR PNEUMATIC by Shoaib Rosado
[2020-12-27] MEDS ORDERED: diphenhydrAMINE HCL 25 MG CAPSULE PO PRN (20:15)
[2020-12-27] MEDS: ACETAMINOPHEN 325 MG TABLET. PO PRN (20:35)
[2020-12-27 23:22] VITALS: BP 173/94
[2020-12-28] MEDS: ACETAMINOPHEN 325 MG TABLET. PO PRN (00:16)
[2020-12-28 03:00] VITALS: BP 171/94
[2020-12-28 07:15] VITALS: BP 174/92
[2020-12-28] MEDS: HEPARIN 25,000UTS/250ML PREMIX 250 ML IV PRN ×2 (09:59→21:38)
[2020-12-28 11:00] VITALS: BP 159/95
--- NOTE | 2020-12-28 11:20 | PDOC1 ---
History and Physical Date of Admission Date of Admission DATE: 12/28/20 TIME: 11:20 Identification/Chief Complaint Chief Complaint 65 year old AA male who presents to the ER with complaints of swelling in both of his hands and legs, shortness of breath, body aches, and upper abdominal pain for several days. Pt reports sx for at least a week. He denies any chest pain, palpitations, nausea, vomiting, diarrhea, cough, or dizziness. Pt complains of R ear pain and sinus pressure. Pt states that he lost his PCP last year and has not had a routine physical in over a year. He reports that his blood pressure has been high recently and requests a refill of his blood pressure medication Lisinopril. Pt describes his abdominal pain pain as a burning sensation. He currently rates his pain a 8/10 on the pain scale, cocaine pos uds in ER Past Medical History Past Medical History Past Medical History Past Medical History Past Medical History: Anxiety, Bronchitis, COPD, Diabetes-Type II, DVT, Hypertension, P.U.D., Other Additional Past Medical Histor: Emphysema, blood clots/PE,CHRONIC PAIN, collapsed lung Past Surgical History: Other Additional Past Surgical Histo: PVD LASER SUGERY LT LEG, dilatation, peptic ulcer; urethral reconstruction Smoking Status: Current Some Day Smoker Alcohol Use: Occasionally Drug Use: None fhx obesity Current Problem List Problem List Problems Medical Problems: (1) Bilateral pulmonary embolism Status: Acute (2) CHF (congestive heart failure) Status: Acute (3) Person under investigation for COVID-19 Status: Acute Current Medications Current Medications Current Medications Fentanyl Citrate (Fentanyl 2ml Vial) 50 mcg 1X ONCE IV Last administered on 12/27/20at 13:03; Start 12/27/20 at 12:15; Stop 12/27/20 at 12:16; Status DC Ondansetron HCl (Zofran) 4 mg 1X ONCE IV Last administered on 12/27/20at 12:58; Start 12/27/20 at 12:15; Stop 12/27/20 at 12:16; Status DC Famotidine (Pepcid Vial) 20 mg 1X ONCE IVP Last administered on 12/27/20at 13:00; Start 12/27/20 at 12:30; Stop 12/27/20 at 12:31; Status DC Ceftriaxone Sodium (Rocephin) 1 gm 1X ONCE IVP Last administered on 12/27/20at 12:52; Start 12/27/20 at 12:30; Stop 12/27/20 at 12:31; Status DC Diphenhydramine HCl (Benadryl) 50 mg 1X ONCE IVP Last administered on 12/27/20at 13:53; Start 12/27/20 at 13:30; Stop 12/27/20 at 13:31; Status DC Methylprednisolone Sodium Succinate (SOLU-Medrol 125MG VIAL) 125 mg 1X ONCE IV Last administered on 12/27/20at 13:56; Start 12/27/20 at 13:30; Stop 12/27/20 at 13:31; Status DC Iohexol (Omnipaque 350 Mg/ml) 100 ml 1X ONCE IV Last administered on 12/27/20at 14:15; Start 12/27/20 at 14:00; Stop 12/27/20 at 14:05; Status DC Info (CONTRAST GIVEN -- Rx MONITORING) 1 each PRN DAILY PRN MC SEE COMMENTS; Start 12/27/20 at 14:15; Stop 12/29/20 at 14:14 Heparin Sodium (Porcine) (Heparin Sodium) 8,800 unit 1X ONCE IV Last administered on 12/27/20at 17:22; Start 12/27/20 at 16:45; Stop 12/27/20 at 16:59; Status DC Heparin Sodium/ Dextrose 250 ml @ 17.6 mls/hr CONT PRN IV PER PROTOCOL Last administered on 12/28/20at 09:59; Start 12/27/20 at 16:45 Heparin Sodium (Porcine) (Heparin Sodium) 3,300 unit PRN Q6HRS PRN IV FOR UFH LEVEL LESS THAN 0.2; Start 12/27/20 at 16:45 Heparin Sodium (Porcine) (Heparin Sodium) 1,650 unit PRN Q6HRS PRN IV FOR UFH LEVEL 0.2 - 0.29; Start 12/27/20 at 16:45 Acetaminophen (Tylenol) 650 mg PRN Q4HRS PRN PO MILD PAIN / TEMP > 100.3'F Last administered on 12/28/20at 00:16; Start 12/27/20 at 20:15 Diphenhydramine HCl (Benadryl) 25 mg PRN QHS PRN PO INSOMNIA Last administered on 12/27/20at 20:35; Start 12/27/20 at 20:15 Active Scripts Active Proair Hfa Inhaler (Albuterol Sulfate) 8.5 Gm Hfa.aer.ad 2 Puff IH PRN Q4-6HRS PRN 21 Days Lisinopril 20 Mg Tablet 1 Tab PO DAILY Proair Hfa Inhaler (Albuterol Sulfate) 8.5 Gm Hfa.aer.ad 1 Puff INH PRN Q6HRS PRN [place] 5-325 Tablet (Acetaminophen/Hydrocodone Bitart) 1 Each Tablet 1 Tab PO QID PRN Benadryl (Diphenhydramine Hcl) 25 Mg Capsule 25 Mg PO PRN Q6HRS PRN Tessalon Perle (Benzonatate) 100 Mg Capsule 1 Cap PO TID PRN Lisinopril 10 Mg Tablet 1 Tab PO DAILY Tessalon Perle (Benzonatate) 100 Mg Capsule 100 Mg PO TID Reported Xanax (Alprazolam) 0.25 Mg Tablet 0.25 Mg PO Ambien (Zolpidem Tartrate) 10 Mg Tablet 10 Mg PO QHS Bupropion Hcl 75 Mg Tablet 75 Mg PO Vistaril (Hydroxyzine Pamoate) 25 Mg Capsule 25 Mg PO Oxycodone Hcl Immed.release (Oxycodone Hcl) 10 Mg Tablet 10 Mg PO QID PRN Allergies Allergies: Coded Allergies: Iodinated Contrast Media (Verified Allergy, Intermediate, Hives, 12/27/20) Physical Exam Physical Exam Constitutional: Well developed, well nourished, no acute distress, non-toxic appearance. [] HENT: Normocephalic, atraumatic, bilateral external ears normal, bilateral tympanic membranes are pearly saucedo, oropharynx moist, no oral exudates, nose turbinates are inflamed. Eyes: PERRLA, EOMI, conjunctiva normal, no discharge. [] Neck: Normal range of motion, no tenderness, supple, no stridor. [] Cardiovascular:Heart rate regular rhythm, no murmur [] Lungs & Thorax: Bilateral breath sounds clear to auscultation [] Abdomen: Bowel sounds normal, soft, no tenderness, no masses, no pulsatile masses. [] Skin: Warm, dry, no erythema, no rash. [] Neurologic: Alert and oriented X 3, normal motor function, normal sensory function, no focal deficits noted. [] Psychologic: Affect normal, judgement normal, mood normal. [] General: Alert, Oriented X3, Cooperative Vitals Vitals Vital Signs Date Time Temp Pulse Resp B/P (MAP) Pulse Ox O2 Delivery O2 Flow Rate FiO2 12/28/20 08:12 Nasal Cannula 2.0 12/28/20 07:15 96.8 80 21 174/92 (119) 94 96.8 Labs Labs Laboratory Tests Test 12/27/20 11:35 12/27/20 12:10 12/27/20 16:49 12/27/20 20:11 Urine Collection Type Unknown Urine Color Yellow Urine Clarity Clear Urine pH 6.0 (<5.0-8.0) Urine Specific [place] 1.015 (1.000-1.030) Urine Protein Negative mg/dL (NEG-TRACE) Urine Glucose (UA) Negative mg/dL (NEG) Urine Ketones (Stick) Negative mg/dL (NEG) Urine Blood Trace (NEG) Urine Nitrite Negative (NEG) Urine Bilirubin Negative (NEG) Urine Urobilinogen Dipstick 1.0 mg/dL (0.2 mg/dL) Urine Leukocyte Esterase Moderate (NEG) Urine RBC 1-2 /HPF (0-2) Urine WBC 11-20 /HPF (0-4) Urine Squamous Epithelial Cells Few /LPF Urine Bacteria Few /HPF (0-FEW) Urine Opiates Screen Neg (NEG) Urine Methadone Screen Neg (NEG) Urine Barbiturates Neg (NEG) Urine Phencyclidine Screen Neg (NEG) Urine Amphetamine/Methamphetamine Neg (NEG) Urine Benzodiazepines Screen Neg (NEG) Urine Cocaine Screen Pos (NEG) Urine Cannabinoids Screen Neg (NEG) Urine Ethyl Alcohol Neg (NEG) White Blood Count 6.2 x10^3/uL (4.0-11.0) Red Blood Count 4.27 x10^6/uL (4.30-5.70) Hemoglobin 13.3 g/dL (13.0-17.5) Hematocrit 40.6 % (39.0-53.0) Mean Corpuscular Volume 95 fL (79-100) Mean Corpuscular Hemoglobin 31 pg (25-35) Mean Corpuscular Hemoglobin Concent 33 g/dL (31-37) Red Cell Distribution Width 14.4 % (11.5-14.5) Platelet Count 166 x10^3/uL (140-400) Neutrophils (%) (Auto) 65 % (31-73) Lymphocytes (%) (Auto) 20 % (24-48) Monocytes (%) (Auto) 12 % (0-9) Eosinophils (%) (Auto) 3 % (0-3) Basophils (%) (Auto) 0 % (0-3) Neutrophils # (Auto) 4.1 x10^3/uL (1.8-7.7) Lymphocytes # (Auto) 1.2 x10^3/uL (1.0-4.8) Monocytes # (Auto) 0.7 x10^3/uL (0.0-1.1) Eosinophils # (Auto) 0.2 x10^3/uL (0.0-0.7) Basophils # (Auto) 0.0 x10^3/uL (0.0-0.2) D-Dimer (Rosalinda) 1.86 ug/mlFEU (0.00-0.50) Sodium Level 143 mmol/L (136-145) Potassium Level 4.0 mmol/L (3.5-5.1) Chloride Level 106 mmol/L (98-107) Carbon Dioxide Level 26 mmol/L (21-32) Anion Gap 11 (6-14) Blood Urea Nitrogen 19 mg/dL (8-26) Creatinine 1.2 mg/dL (0.7-1.3) Estimated GFR (Cockcroft-Gault) 73.3 BUN/Creatinine Ratio 16 (6-20) Glucose Level 84 mg/dL (70-99) Calcium Level 8.2 mg/dL (8.5-10.1) Magnesium Level 2.1 mg/dL (1.8-2.4) Total Bilirubin 0.6 mg/dL (0.2-1.0) Aspartate Amino Transf (AST/SGOT) 19 U/L (15-37) Alanine Aminotransferase (ALT/SGPT) 30 U/L (16-63) Alkaline Phosphatase 105 U/L (46-116) Creatine Kinase 233 U/L (39-308) Creatine Kinase MB (Mass) 0.9 ng/mL (0.0-3.6) Creatine Kinase MB Relative Index 0.4 % (0-4) Troponin I Quantitative < 0.017 ng/mL (0.000-0.055) LY-Rlo-R-Type Natriuretic Peptide 822 pg/mL (0-124) Total Protein 6.9 g/dL (6.4-8.2) Albumin 3.4 g/dL (3.4-5.0) Albumin/Globulin Ratio 1.0 (1.0-1.7) Lipase 56 U/L (73-393) Coronavirus (PCR) Not detected (Not Detected) Glucose (Fingerstick) 177 mg/dL (70-99) Test 12/27/20 23:30 12/28/20 10:01 Heparin Anti-Xa Act, Unfractionated 0.76 IU/mL (0.30-0.70) 0.42 IU/mL (0.30-0.70) Laboratory Tests Test 12/27/20 11:35 12/27/20 12:10 12/27/20 16:49 12/27/20 20:11 Urine Collection Type Unknown Urine Color Yellow Urine Clarity Clear Urine pH 6.0 (<5.0-8.0) Urine Specific [place] 1.015 (1.000-1.030) Urine Protein Negative mg/dL (NEG-TRACE) Urine Glucose (UA) Negative mg/dL (NEG) Urine Ketones (Stick) Negative mg/dL (NEG) Urine Blood Trace (NEG) Urine Nitrite Negative (NEG) Urine Bilirubin Negative (NEG) Urine Urobilinogen Dipstick 1.0 mg/dL (0.2 mg/dL) Urine Leukocyte Esterase Moderate (NEG) Urine RBC 1-2 /HPF (0-2) Urine WBC 11-20 /HPF (0-4) Urine Squamous Epithelial Cells Few /LPF Urine Bacteria Few /HPF (0-FEW) Urine Opiates Screen Neg (NEG) Urine Methadone Screen Neg (NEG) Urine Barbiturates Neg (NEG) Urine Phencyclidine Screen Neg (NEG) Urine Amphetamine/Methamphetamine Neg (NEG) Urine Benzodiazepines Screen Neg (NEG) Urine Cocaine Screen Pos (NEG) Urine Cannabinoids Screen Neg (NEG) Urine Ethyl Alcohol Neg (NEG) White Blood Count 6.2 x10^3/uL (4.0-11.0) Red Blood Count 4.27 x10^6/uL (4.30-5.70) Hemoglobin 13.3 g/dL (13.0-17.5) Hematocrit 40.6 % (39.0-53.0) Mean Corpuscular Volume 95 fL (79-100) Mean Corpuscular Hemoglobin 31 pg (25-35) Mean Corpuscular Hemoglobin Concent 33 g/dL (31-37) Red Cell Distribution Width 14.4 % (11.5-14.5) Platelet Count 166 x10^3/uL (140-400) Neutrophils (%) (Auto) 65 % (31-73) Lymphocytes (%) (Auto) 20 % (24-48) Monocytes (%) (Auto) 12 % (0-9) Eosinophils (%) (Auto) 3 % (0-3) Basophils (%) (Auto) 0 % (0-3) Neutrophils # (Auto) 4.1 x10^3/uL (1.8-7.7) Lymphocytes # (Auto) 1.2 x10^3/uL (1.0-4.8) Monocytes # (Auto) 0.7 x10^3/uL (0.0-1.1) Eosinophils # (Auto) 0.2 x10^3/uL (0.0-0.7) Basophils # (Auto) 0.0 x10^3/uL (0.0-0.2) D-Dimer (Rosalinda) 1.86 ug/mlFEU (0.00-0.50) Sodium Level 143 mmol/L (136-145) Potassium Level 4.0 mmol/L (3.5-5.1) Chloride Level 106 mmol/L (98-107) Carbon Dioxide Level 26 mmol/L (21-32) Anion Gap 11 (6-14) Blood Urea Nitrogen 19 mg/dL (8-26) Creatinine 1.2 mg/dL (0.7-1.3) Estimated GFR (Cockcroft-Gault) 73.3 BUN/Creatinine Ratio 16 (6-20) Glucose Level 84 mg/dL (70-99) Calcium Level 8.2 mg/dL (8.5-10.1) Magnesium Level 2.1 mg/dL (1.8-2.4) Total Bilirubin 0.6 mg/dL (0.2-1.0) Aspartate Amino Transf (AST/SGOT) 19 U/L (15-37) Alanine Aminotransferase (ALT/SGPT) 30 U/L (16-63) Alkaline Phosphatase 105 U/L (46-116) Creatine Kinase 233 U/L (39-308) Creatine Kinase MB (Mass) 0.9 ng/mL (0.0-3.6) Creatine Kinase MB Relative Index 0.4 % (0-4) Troponin I Quantitative < 0.017 ng/mL (0.000-0.055) FI-Isg-V-Type Natriuretic Peptide 822 pg/mL (0-124) Total Protein 6.9 g/dL (6.4-8.2) Albumin 3.4 g/dL (3.4-5.0) Albumin/Globulin Ratio 1.0 (1.0-1.7) Lipase 56 U/L (73-393) Coronavirus (PCR) Not detected (Not Detected) Glucose (Fingerstick) 177 mg/dL (70-99) Test 12/27/20 23:30 12/28/20 10:01 Heparin Anti-Xa Act, Unfractionated 0.76 IU/mL (0.30-0.70) 0.42 IU/mL (0.30-0.70) Images Images PATIENT: VANNESSA ZAMORA ACCOUNT: [id number] : 1955 LOCATION: ER AGE: 65 SEX: M EXAM STATUS: REG ER ORD. PHYSICIAN: JUAN HAWKINS APRN REASON: SOA, elevated d-dimer PROCEDURE: CT ANGIOGRAPHY CHEST EXAM: CT chest with contrast - pulmonary embolus protocol CLINICAL HISTORY: Shortness of air, elevated d-dimer COMPARISON: None. TECHNIQUE: CT of the chest following the administration of intravenous contrast during the pulmonary arterial phase. Axial, coronal and sagittal reformatted images were generated including MIP images. ---PQRS compliance statement - One or more of the following individualized dose reduction techniques were utilized for this study: 1. Automated exposure control 2. Adjustment of the mA and/or kV according to patient size 3. Use of iterative reconstruction technique--- FINDINGS: CHEST: Diagnostic quality: Adequate. Pulmonary emboli: Pulmonary arterial filling defects are seen bilaterally, the majority. Linear and eccentric, likely chronic however subcutaneous pulmonary emboli are also seen. Dock Coordinator pulmonary emboli including within a superior segmental pulmonary artery of the left lower lobe there is a filling defect with distal pruning of the pulmonary arteries. Filling defects are also seen within several left lower lobe subsegmental-subsegmental pulmonary arteries, for example series 3 image 118. Additionally right upper lobe filling defects are also seen. Right heart strain: None Pulmonary arteries: Normal in caliber. Right hilar lymphadenopathy is seen, for example a 3.7 x 2.3 cm right hilar lymph node (series 3 image 78) is seen. Left hilar lymphadenopathy is also seen, for example a pharmaceutical specialty representative left hilar lymph node measures 2 x 1.3 cm. No axillary lymphadenopathy. Heart is not enlarged. No pericardial effusion. No pleural effusion or pneumothorax. Prominence of pulmonary arterial trunk may be seen with pulmonary arterial hypertension. Background of emphysematous changes are seen. For example opacities in the peripheral left lower lobe posterolaterally, possibly parenchymal infarct or focal atelectasis/developing consolidative process. Visualized Upper abdomen: Moderate to large volume colonic stool content. Bones: No aggressive osseous lesion is seen. IMPRESSION: 1. Bilateral pulmonary emboli are seen, many of which appear chronic with distal tapering of the pulmonary arteries however several acute pulmonary emboli are also suspected. No definite evidence for right heart strain 2. Wedge-shaped parenchymal opacities in the peripheral left lower lobe may represent parenchymal infarct although atelectasis or developing consolidation although this appearance. 3. Background of emphysematous changes. Findings discussed with emergency room physician at 12/27/2020 4:37 PM. FOR INTERNAL CODING PURPOSES VTE Prophylaxis Ordered VTE Prophylaxis Devices: No VTE Pharmacological Prophylaxi: Yes Assessment/Plan Assessment/Plan IMPRESSION: 1. Bilateral pulmonary emboli many of which appear chronic with distal tapering of the pulmonary arteries however several acute pulmonary emboli are suspected. 2. Wedge-shaped parenchymal opacities in the peripheral left lower lobe may represent parenchymal infarct although atelectasis or developing consolidation although this appearance. 3. Background of emphysematous changes 4. SUBSTANCE ABUSE, COCAINE 5, PUI COVID 19 6. CHF (congestive heart failure) LIKELY RELATED TO COCAINE ABUSE PLAN ADMIT HEPARIN DRIP PROTOCOL PULM CONSULT O2 SUPPORT Justifications for Admission Other Justification MIGDALIA PERSON MD Dec 28, 2020 11:20
[2020-12-28] MEDS: ANTI-COAG MONITOR BY PHARMACY. MC PRN (13:53)
[2020-12-28 15:00] VITALS: BP 160/95
[2020-12-28] MEDS ORDERED: ALBUTEROL SULFATE 2.5 MG/3 ML NEBU. INH PRN (15:45)
[2020-12-28] MEDS ORDERED: diphenhydrAMINE HCL 25 MG CAPSULE PO PRN (15:45)
[2020-12-28] MEDS ORDERED: ALBUTEROL SULFATE 2.5 MG/3 ML NEBU. NEB PRN ×2 (15:45→16:00)
[2020-12-28] MEDS ORDERED: BENZONATATE 100 MG CAPSULE. PO PRN (15:45)
[2020-12-28] MEDS: LISINOPRIL 20 MG TABLET PO SCH (15:50)
[2020-12-28] MEDS: HYDROcodone/APAP 5/325MG 1 TAB TABLET PO PRN (15:57)
[2020-12-28] MEDS ORDERED: 0.9 % SODIUM CHLORIDE 10 ML DISP.SYRIN. IV PRN (16:00)
[2020-12-28] MEDS ORDERED: cloNIDine HCL 0.1 MG TABLET PO PRN (16:00)
[2020-12-28] MEDS ORDERED: DOCUSATE SODIUM 100 MG CAPSULE. PO PRN (16:00)
[2020-12-28] MEDS ORDERED: ACETAMINOPHEN 325 MG TABLET. PO PRN (16:00)
[2020-12-28] MEDS ORDERED: SODIUM PHOSPHATES 19/7GM 133 ML ENEMA. PR PRN (16:00)
[2020-12-28] MEDS ORDERED: ONDANSETRON PF 4 MG/2 ML VIAL. IV PRN (16:00)
[2020-12-28] MEDS ORDERED: MAG HYDROX/ALUMINUM HYD/SIMETH 30 ML ORAL.SUSP PO PRN (16:00)
[2020-12-28] MEDS ORDERED: guaiFENesin ORAL 200 MG/10 ML LIQUID. PO PRN (16:00)
[2020-12-28] MEDS: PANTOPRAZOLE 40 MG TABLET.DR. PO SCH (16:08)
--- NOTE | 2020-12-28 17:02 | HP ---
ADMIT DATE: 12/28/2020 CHIEF COMPLAINT: Shortness of breath, left flank pain, body aches. HISTORY OF PRESENT ILLNESS: This is a 65-year-old male presented to the ER with body aches, shortness of breath and left flank pain. CT of the chest showed evidence of acute pulmonary emboli some of which were acute, some of which were chronic. He was hypoxic however. rna screen for coronavirus was negative. CTA of the chest showed emphysematous changes with bilateral pulmonary emboli. No definite right heart strain. There was a wedge-shaped parenchymal opacity in the peripheral left lobe, which could be represent a pulmonary infarct. The patient does have a known history of cocaine abuse, was therefore admitted on a heparin drip for pulmonary consult, further evaluation. PAST MEDICAL HISTORY: Significant for substance abuse, COPD, anxiety, bronchitis, diabetes, hypertension, peptic ulcer disease, emphysema, urethral reconstruction, tobacco abuse, cocaine and marijuana abuse. CURRENT MEDICATIONS: Please see medication reconciliation. REVIEW OF SYSTEMS: The patient denies nausea or vomiting. Complains of left flank pain. Denies fever. Does complain of body aches, some swelling in his legs. A 14-point review of systems otherwise negative. PHYSICAL EXAMINATION: GENERAL: This is an alert and oriented white male in no acute distress. He is wearing 2 liters O2. NECK: Supple. HEENT: Throat and pharynx clear. Pupils equal and reactive to light. CARDIOVASCULAR: Regular rate without murmur, S3, S4. LUNGS: Clear. ABDOMEN: Soft, nontender. No palpable mass. SKIN: Warm and dry without rash. NEUROLOGIC: Moves all extremities well. Muscles of mastication are symmetric bilaterally. Normal sensory function. Affect is normal. Judgment is poor. Mood is normal. He is alert and oriented, cooperative, pleasant. VITAL SIGNS: Blood pressure is 174/92, pulse 80, temperature 96.8, O2 sat 94% on 2 liters nasal cannula. LABORATORY AND DIAGNOSTIC DATA: Urine drug screen positive for cocaine. White count 6.2, hemoglobin 13.3, platelets 166,000. D-dimer 1.86, sodium 143, potassium 4.0, BUN 19, creatinine 1.2, calcium 8.2, troponin less than 0.017, albumin 3.4, glucose 177. ASSESSMENT: 1. Bilateral pulmonary emboli with possible parenchymal infarct. 2. Emphysema. 3. History of tobacco abuse. 4. History of polysubstance abuse including cocaine. 5. Patient under investigation COVID-19. 6. Congestive heart failure related to cocaine abuse. PLAN: Heparin drip protocol, Pulmonary consult and O2 support. Continue home meds, lisinopril for blood pressure control, IV Zofran p.r.n. nausea or vomiting, GI prophylaxis. Total time spent with the patient's exam, chart review was 68 minutes, greater than 50% of time spent with the patient's exam, chart review and the patient's care and coordination. MIGDALIA PERSON MD DR: LOUISE/miguel angel JOB#: [id number] / [id number] WALTER
[2020-12-28 19:59] VITALS: BP 173/112
[2020-12-28] MEDS: ZOLPIDEM 5 MG TABLET. PO SCH (20:06)
[2020-12-28] MEDS: ALPRAZolam 0.25 MG TABLET PO PRN (20:41)
--- NOTE | 2020-12-28 21:30 | NUR ---
Patient given 1999 meds including Xanax, Ambien, Hydrocodone for pain and Clonodine for SBP > 160, A/O x4 all needs met, going to rm 263. Report given to receiving FE Ann.
[2020-12-28 22:10] VITALS: BP 163/97
[2020-12-29 02:52] VITALS: BP 145/84
[2020-12-29 05:20] LABS: BASO % 0 % (0-3); EOS # 0.1 x10^3/uL (0.0-0.7); EOS % 2 % (0-3); HEMATOCRIT 37.7 % (39.0-53.0); HEMOGLOBIN 12.4 g/dL (13.0-17.5); LYMPH # 1.9 x10^3/uL (1.0-4.8); LYMPH % 31 % (24-48); MEAN CORPUSCULAR HEMOGLOBIN 31 pg (25-35); MEAN CORPUSCULAR HGB CONC 33 g/dL (31-37); MEAN CORPUSCULAR VOLUME 95 fL (79-100); MONO # 0.6 x10^3/uL (0.0-1.1); MONO % 10 % (0-9); NEUT # 3.6 x10^3/uL (1.8-7.7); NEUT % 57 % (31-73); PLATELET COUNT 163 x10^3/uL (140-400); RED BLOOD COUNT 3.97 x10^6/uL (4.30-5.70); RED CELL DISTRIBUTION WIDTH 14.2 % (11.5-14.5); WHITE BLOOD COUNT 6.3 x10^3/uL (4.0-11.0)
[2020-12-29 05:55] LABS: CALCIUM 8.4 mg/dL (8.5-10.1); CREATININE 1.1 mg/dL (0.7-1.3); POTASSIUM 3.9 mmol/L (3.5-5.1); TOTAL BILIRUBIN 0.4 mg/dL (0.2-1.0)
[2020-12-29 07:25] VITALS: BP 135/90
[2020-12-29] MEDS: ANTI-COAG MONITOR BY PHARMACY. MC PRN (07:54)
[2020-12-29] MEDS ORDERED: buPROPion 75 MG TABLET. PO SCH (08:00)
[2020-12-29] MEDS: LISINOPRIL 20 MG TABLET PO SCH (08:08)
[2020-12-29] MEDS: PANTOPRAZOLE 40 MG TABLET.DR. PO SCH (08:08)
[2020-12-29] MEDS: ALPRAZolam 0.25 MG TABLET PO PRN ×2 (09:22→19:01)
[2020-12-29] MEDS: HYDROcodone/APAP 5/325MG 1 TAB TABLET PO PRN ×4 (09:22→23:36)
--- NOTE | 2020-12-29 09:28 | PDOC ---
PULMONARY PROGRESS NOTES DATE: 12/29/20 TIME: 09:26 Vitals Vital Signs Date Time Temp Pulse Resp B/P (MAP) Pulse Ox O2 Delivery O2 Flow Rate FiO2 12/29/20 08:08 75 135/90 12/29/20 07:25 98.0 18 99 Nasal Cannula 2.0 98.0 Labs Laboratory Tests Test 12/27/20 11:35 12/27/20 12:10 12/27/20 16:49 12/27/20 20:11 Urine Collection Type Unknown Urine Color Yellow Urine Clarity Clear Urine pH 6.0 (<5.0-8.0) Urine Specific [place] 1.015 (1.000-1.030) Urine Protein Negative mg/dL (NEG-TRACE) Urine Glucose (UA) Negative mg/dL (NEG) Urine Ketones (Stick) Negative mg/dL (NEG) Urine Blood Trace (NEG) Urine Nitrite Negative (NEG) Urine Bilirubin Negative (NEG) Urine Urobilinogen Dipstick 1.0 mg/dL (0.2 mg/dL) Urine Leukocyte Esterase Moderate (NEG) Urine RBC 1-2 /HPF (0-2) Urine WBC 11-20 /HPF (0-4) Urine Squamous Epithelial Cells Few /LPF Urine Bacteria Few /HPF (0-FEW) Urine Opiates Screen Neg (NEG) Urine Methadone Screen Neg (NEG) Urine Barbiturates Neg (NEG) Urine Phencyclidine Screen Neg (NEG) Urine Amphetamine/Methamphetamine Neg (NEG) Urine Benzodiazepines Screen Neg (NEG) Urine Cocaine Screen Pos (NEG) Urine Cannabinoids Screen Neg (NEG) Urine Ethyl Alcohol Neg (NEG) White Blood Count 6.2 x10^3/uL (4.0-11.0) Red Blood Count 4.27 x10^6/uL (4.30-5.70) Hemoglobin 13.3 g/dL (13.0-17.5) Hematocrit 40.6 % (39.0-53.0) Mean Corpuscular Volume 95 fL (79-100) Mean Corpuscular Hemoglobin 31 pg (25-35) Mean Corpuscular Hemoglobin Concent 33 g/dL (31-37) Red Cell Distribution Width 14.4 % (11.5-14.5) Platelet Count 166 x10^3/uL (140-400) Neutrophils (%) (Auto) 65 % (31-73) Lymphocytes (%) (Auto) 20 % (24-48) Monocytes (%) (Auto) 12 % (0-9) Eosinophils (%) (Auto) 3 % (0-3) Basophils (%) (Auto) 0 % (0-3) Neutrophils # (Auto) 4.1 x10^3/uL (1.8-7.7) Lymphocytes # (Auto) 1.2 x10^3/uL (1.0-4.8) Monocytes # (Auto) 0.7 x10^3/uL (0.0-1.1) Eosinophils # (Auto) 0.2 x10^3/uL (0.0-0.7) Basophils # (Auto) 0.0 x10^3/uL (0.0-0.2) D-Dimer (Rosalinda) 1.86 ug/mlFEU (0.00-0.50) Sodium Level 143 mmol/L (136-145) Potassium Level 4.0 mmol/L (3.5-5.1) Chloride Level 106 mmol/L (98-107) Carbon Dioxide Level 26 mmol/L (21-32) Anion Gap 11 (6-14) Blood Urea Nitrogen 19 mg/dL (8-26) Creatinine 1.2 mg/dL (0.7-1.3) Estimated GFR (Cockcroft-Gault) 73.3 BUN/Creatinine Ratio 16 (6-20) Glucose Level 84 mg/dL (70-99) Calcium Level 8.2 mg/dL (8.5-10.1) Magnesium Level 2.1 mg/dL (1.8-2.4) Total Bilirubin 0.6 mg/dL (0.2-1.0) Aspartate Amino Transf (AST/SGOT) 19 U/L (15-37) Alanine Aminotransferase (ALT/SGPT) 30 U/L (16-63) Alkaline Phosphatase 105 U/L (46-116) Creatine Kinase 233 U/L (39-308) Creatine Kinase MB (Mass) 0.9 ng/mL (0.0-3.6) Creatine Kinase MB Relative Index 0.4 % (0-4) Troponin I Quantitative < 0.017 ng/mL (0.000-0.055) QD-Syw-G-Type Natriuretic Peptide 822 pg/mL (0-124) Total Protein 6.9 g/dL (6.4-8.2) Albumin 3.4 g/dL (3.4-5.0) Albumin/Globulin Ratio 1.0 (1.0-1.7) Lipase 56 U/L (73-393) Coronavirus (PCR) Not detected (Not Detected) Glucose (Fingerstick) 177 mg/dL (70-99) Test 12/27/20 23:30 12/28/20 10:01 12/28/20 11:26 12/28/20 16:25 Heparin Anti-Xa Act, Unfractionated 0.76 IU/mL (0.30-0.70) 0.42 IU/mL (0.30-0.70) 0.50 IU/mL (0.30-0.70) Glucose (Fingerstick) 111 mg/dL (70-99) Test 12/28/20 16:35 12/28/20 21:04 12/29/20 04:30 Glucose (Fingerstick) 103 mg/dL (70-99) 129 mg/dL (70-99) White Blood Count 6.3 x10^3/uL (4.0-11.0) Red Blood Count 3.97 x10^6/uL (4.30-5.70) Hemoglobin 12.4 g/dL (13.0-17.5) Hematocrit 37.7 % (39.0-53.0) Mean Corpuscular Volume 95 fL (79-100) Mean Corpuscular Hemoglobin 31 pg (25-35) Mean Corpuscular Hemoglobin Concent 33 g/dL (31-37) Red Cell Distribution Width 14.2 % (11.5-14.5) Platelet Count 163 x10^3/uL (140-400) Neutrophils (%) (Auto) 57 % (31-73) Lymphocytes (%) (Auto) 31 % (24-48) Monocytes (%) (Auto) 10 % (0-9) Eosinophils (%) (Auto) 2 % (0-3) Basophils (%) (Auto) 0 % (0-3) Neutrophils # (Auto) 3.6 x10^3/uL (1.8-7.7) Lymphocytes # (Auto) 1.9 x10^3/uL (1.0-4.8) Monocytes # (Auto) 0.6 x10^3/uL (0.0-1.1) Eosinophils # (Auto) 0.1 x10^3/uL (0.0-0.7) Basophils # (Auto) 0.0 x10^3/uL (0.0-0.2) Heparin Anti-Xa Act, Unfractionated 0.63 IU/mL (0.30-0.70) Sodium Level 143 mmol/L (136-145) Potassium Level 3.9 mmol/L (3.5-5.1) Chloride Level 107 mmol/L (98-107) Carbon Dioxide Level 29 mmol/L (21-32) Anion Gap 7 (6-14) Blood Urea Nitrogen 15 mg/dL (8-26) Creatinine 1.1 mg/dL (0.7-1.3) Estimated GFR (Cockcroft-Gault) 81.0 BUN/Creatinine Ratio 14 (6-20) Glucose Level 130 mg/dL (70-99) Calcium Level 8.4 mg/dL (8.5-10.1) Total Bilirubin 0.4 mg/dL (0.2-1.0) Aspartate Amino Transf (AST/SGOT) 13 U/L (15-37) Alanine Aminotransferase (ALT/SGPT) 27 U/L (16-63) Alkaline Phosphatase 84 U/L (46-116) Total Protein 6.0 g/dL (6.4-8.2) Albumin 3.0 g/dL (3.4-5.0) Albumin/Globulin Ratio 1.0 (1.0-1.7) Laboratory Tests Test 12/28/20 10:01 12/28/20 11:26 12/28/20 16:25 12/28/20 16:35 Heparin Anti-Xa Act, Unfractionated 0.42 IU/mL (0.30-0.70) 0.50 IU/mL (0.30-0.70) Glucose (Fingerstick) 111 mg/dL (70-99) 103 mg/dL (70-99) Test 12/28/20 21:04 12/29/20 04:30 Glucose (Fingerstick) 129 mg/dL (70-99) White Blood Count 6.3 x10^3/uL (4.0-11.0) Red Blood Count 3.97 x10^6/uL (4.30-5.70) Hemoglobin 12.4 g/dL (13.0-17.5) Hematocrit 37.7 % (39.0-53.0) Mean Corpuscular Volume 95 fL (79-100) Mean Corpuscular Hemoglobin 31 pg (25-35) Mean Corpuscular Hemoglobin Concent 33 g/dL (31-37) Red Cell Distribution Width 14.2 % (11.5-14.5) Platelet Count 163 x10^3/uL (140-400) Neutrophils (%) (Auto) 57 % (31-73) Lymphocytes (%) (Auto) 31 % (24-48) Monocytes (%) (Auto) 10 % (0-9) Eosinophils (%) (Auto) 2 % (0-3) Basophils (%) (Auto) 0 % (0-3) Neutrophils # (Auto) 3.6 x10^3/uL (1.8-7.7) Lymphocytes # (Auto) 1.9 x10^3/uL (1.0-4.8) Monocytes # (Auto) 0.6 x10^3/uL (0.0-1.1) Eosinophils # (Auto) 0.1 x10^3/uL (0.0-0.7) Basophils # (Auto) 0.0 x10^3/uL (0.0-0.2) Heparin Anti-Xa Act, Unfractionated 0.63 IU/mL (0.30-0.70) Sodium Level 143 mmol/L (136-145) Potassium Level 3.9 mmol/L (3.5-5.1) Chloride Level 107 mmol/L (98-107) Carbon Dioxide Level 29 mmol/L (21-32) Anion Gap 7 (6-14) Blood Urea Nitrogen 15 mg/dL (8-26) Creatinine 1.1 mg/dL (0.7-1.3) Estimated GFR (Cockcroft-Gault) 81.0 BUN/Creatinine Ratio 14 (6-20) Glucose Level 130 mg/dL (70-99) Calcium Level 8.4 mg/dL (8.5-10.1) Total Bilirubin 0.4 mg/dL (0.2-1.0) Aspartate Amino Transf (AST/SGOT) 13 U/L (15-37) Alanine Aminotransferase (ALT/SGPT) 27 U/L (16-63) Alkaline Phosphatase 84 U/L (46-116) Total Protein 6.0 g/dL (6.4-8.2) Albumin 3.0 g/dL (3.4-5.0) Albumin/Globulin Ratio 1.0 (1.0-1.7) Medications Active Scripts Medications Dose Route/Sig Max Daily Dose Days Date Category Proair Hfa Inhaler (Albuterol Sulfate) 8.5 Gm Hfa.aer.ad 2 Puff IH PRN Q4-6HRS PRN 21 01/08/20 Rx Lisinopril 20 Mg Tablet 1 Tab PO DAILY 01/08/20 Rx Proair Hfa Inhaler (Albuterol Sulfate) 8.5 Gm Hfa.aer.ad 1 Puff INH PRN Q6HRS PRN 10/02/18 Rx [place] 5-325 Tablet (Acetaminophen/Hydrocodone Bitart) 1 Each Tablet 1 Tab PO QID PRN 05/10/17 Rx Benadryl (Diphenhydramine Hcl) 25 Mg Capsule 25 Mg PO PRN Q6HRS PRN 10/30/16 Rx Tessalon Perle (Benzonatate) 100 Mg Capsule 1 Cap PO TID PRN 08/17/16 Rx Lisinopril 10 Mg Tablet 1 Tab PO DAILY 08/17/16 Rx Xanax (Alprazolam) 0.25 Mg Tablet 0.25 Mg PO 02/14/14 Reported Tessalon Perle (Benzonatate) 100 Mg Capsule 100 Mg PO TID 11/05/13 Rx Ambien (Zolpidem Tartrate) 10 Mg Tablet 10 Mg PO QHS 11/05/13 Reported Vistaril (Hydroxyzine Pamoate) 25 Mg Capsule 25 Mg PO 11/05/13 Reported Oxycodone Hcl Immed.release (Oxycodone Hcl) 10 Mg Tablet 10 Mg PO QID PRN 11/05/13 Reported Impression . FULL NOTE DICTATED RECURRENT PE COPD NEEDS LIFETIME ANTICOAGULATION MAY SWITCH TO ELIQUIS AND DC IN AM CALLED PHARMACY TO [facility] TO ELIQUIS I WILL SEE NEEDED THANKS JAIR KIMBALL MD Dec 29, 2020 09:28
--- NOTE | 2020-12-29 09:51 | CONS ---
DATE OF CONSULTATION: 12/29/2020 ATTENDING PHYSICIAN: Gucci Lewis MD CONSULTING PHYSICIAN: Jair Kimball MD REASON FOR CONSULTATION: The patient is seen in pulmonary consultation at the request of Dr. Lewis for PE. HISTORY OF PRESENT ILLNESS: The patient is a 65-year-old that has a prior history of PE. He was treated for quite some time. He has been off an anticoagulation for several years now. He presented to the Emergency Room thinking that he had similar type of problem. He states that he had similar type of symptoms. He was short of breath. He also has some left flank pain. A CT angiogram was obtained revealing acute pulmonary emboli with possibility of right heart strain. I was asked to see him in consultation. There is also a wedge-shaped parenchymal opacity in the peripheral left lower lobe, which may represent pulmonary infarct. The patient is currently feeling better. He is on IV heparin. He was asking for pain medication. He does have a history of polysubstance abuse. When he came in, he tested positive for cocaine. PAST MEDICAL HISTORY: Previous pulmonary embolism. He has a history of COPD, anxiety, chronic bronchitis, diabetes, tobacco dependence, hyperlipidemia, peptic ulcer disease. He has had previous urethral reconstruction. PAST SURGICAL HISTORY: Previous urethral reconstruction. ALLERGIES: CONTRAST MEDIA. REVIEW OF SYSTEMS: CONSTITUTIONAL: No fever or chills. EYES: No change in visual acuity. HENT: No nasal congestion or sore throat. PULMONARY: As indicated above. CARDIOVASCULAR: No chest pain, no significant angina type of discomfort. GASTROINTESTINAL: Some diffuse abdominal pain. GENITOURINARY: No dysuria or frequency. MUSCULOSKELETAL: No localized muscle aches or joint pains. SKIN: No new skin rashes. NEUROLOGIC: No headaches, diplopia or blurred vision. SOCIAL HISTORY: He continues to smoke. He admits to using drugs in the past. PHYSICAL EXAMINATION: VITAL SIGNS: Stable. O2 saturation was greater than 92%. He has been afebrile since admission. HEENT: Eyes: The sclerae were nonicteric. NECK: Jugular venous distention was not elevated. No lymphadenopathy. CHEST: Full expansion. LUNGS: Adequate flow. No wheezes. CARDIOVASCULAR: Regular rate and rhythm with S1, S2. No S3. ABDOMEN: Soft, nontender, nondistended. EXTREMITIES: No clubbing, cyanosis or edema. IMAGING: CT chest was reviewed; bilateral pulmonary emboli; wedge-shaped opacity, peripheral left lower lobe. IMPRESSION: 1. Acute pulmonary embolism. 2. Acute pulmonary infarct. 3. Previous history of deep venous thrombosis and pulmonary embolism. 4. Venous Dopplers of the lower extremities currently negative. 5. Polysubstance use. 6. Tobacco dependence. 7. Emphysema. PLAN: 1. Continue IV heparin. 2. Switch over to Eliquis. The patient will require lifetime anticoagulation. 3. Follow up on SARS-CoV-2. I do appreciate the privilege in sharing in the patient's care. JAIR KIMBALL MD DR: AKILA/miguel angel JOB#: [id number] / [id number]
[2020-12-29] MEDS: APIXABAN 5 MG TABLET. PO SCH ×2 (10:22→19:02)
[2020-12-29 10:33] VITALS: BP 154/63
--- NOTE | 2020-12-29 11:48 | PDOC ---
[employer] PROGRESS NOTE Date of Service DOS: DATE: 12/29/20 TIME: 11:39 Chief Complaint Chief Complaint Pulmonary emboli Anxiety, Bronchitis, COPD, Diabetes-Type II, DVT, Hypertension, P.U.D., Other Additional Past Medical Histor: Emphysema, blood clots/PE,CHRONIC PAIN, collapsed lung Past Surgical History: Other Additional Past Surgical Histo: PVD LASER SUGERY LT LEG, dilatation, peptic ulcer; urethral reconstruction Smoking Status: Current Some Day Smoker History of Present Illness History of Present Illness 12-29-20 - Pt seen and examined. - Heparin drip has been discontinued. Pt is now on Eliquis. - Juan RN. - Chart reviewed. Vitals/I&O Vitals/I&O: Vital Signs Date Time Temp Pulse Resp B/P (MAP) Pulse Ox O2 Delivery O2 Flow Rate FiO2 12/29/20 10:33 98.1 77 20 154/63 (93) 99 Nasal Cannula 2.0 98.1 I & O 12/28/20 12/28/20 12/29/20 15:00 23:00 07:00 Intake Total 360 ml 120 ml 400 ml Output Total 400 ml 550 ml Balance 360 ml -280 ml -150 ml Physical Exam General: Alert, Oriented X3, Cooperative Heart: Regular rate, Normal S1, Normal S2 Lungs: Clear Abdomen: Normal bowel sounds, Soft Extremities: No clubbing, No cyanosis Skin: No rashes, No breakdown Labs Labs: Laboratory Tests Test 12/28/20 16:25 12/28/20 16:35 12/28/20 21:04 12/29/20 04:30 Heparin Anti-Xa Act, Unfractionated 0.50 IU/mL (0.30-0.70) 0.63 IU/mL (0.30-0.70) Glucose (Fingerstick) 103 mg/dL (70-99) 129 mg/dL (70-99) White Blood Count 6.3 x10^3/uL (4.0-11.0) Red Blood Count 3.97 x10^6/uL (4.30-5.70) Hemoglobin 12.4 g/dL (13.0-17.5) Hematocrit 37.7 % (39.0-53.0) Mean Corpuscular Volume 95 fL (79-100) Mean Corpuscular Hemoglobin 31 pg (25-35) Mean Corpuscular Hemoglobin Concent 33 g/dL (31-37) Red Cell Distribution Width 14.2 % (11.5-14.5) Platelet Count 163 x10^3/uL (140-400) Neutrophils (%) (Auto) 57 % (31-73) Lymphocytes (%) (Auto) 31 % (24-48) Monocytes (%) (Auto) 10 % (0-9) Eosinophils (%) (Auto) 2 % (0-3) Basophils (%) (Auto) 0 % (0-3) Neutrophils # (Auto) 3.6 x10^3/uL (1.8-7.7) Lymphocytes # (Auto) 1.9 x10^3/uL (1.0-4.8) Monocytes # (Auto) 0.6 x10^3/uL (0.0-1.1) Eosinophils # (Auto) 0.1 x10^3/uL (0.0-0.7) Basophils # (Auto) 0.0 x10^3/uL (0.0-0.2) Sodium Level 143 mmol/L (136-145) Potassium Level 3.9 mmol/L (3.5-5.1) Chloride Level 107 mmol/L (98-107) Carbon Dioxide Level 29 mmol/L (21-32) Anion Gap 7 (6-14) Blood Urea Nitrogen 15 mg/dL (8-26) Creatinine 1.1 mg/dL (0.7-1.3) Estimated GFR (Cockcroft-Gault) 81.0 BUN/Creatinine Ratio 14 (6-20) Glucose Level 130 mg/dL (70-99) Calcium Level 8.4 mg/dL (8.5-10.1) Total Bilirubin 0.4 mg/dL (0.2-1.0) Aspartate Amino Transf (AST/SGOT) 13 U/L (15-37) Alanine Aminotransferase (ALT/SGPT) 27 U/L (16-63) Alkaline Phosphatase 84 U/L (46-116) Total Protein 6.0 g/dL (6.4-8.2) Albumin 3.0 g/dL (3.4-5.0) Albumin/Globulin Ratio 1.0 (1.0-1.7) Review of Systems Review of Systems: No rashes or itching. No headaches or dizziness. No vomiting or diarrhea. Assessment and Plan Assessmemt and Plan Problems Medical Problems: (1) Bilateral pulmonary embolism Status: Acute (2) CHF (congestive heart failure) Status: Acute (3) Person under investigation for COVID-19 Status: Acute Assessment: 1. Bilateral pulmonary embolism 2. Emphysema 3. History of polysubstance abuse Anxiety, Bronchitis, COPD, Diabetes-Type II, DVT, Hypertension, P.U.D., Other Additional Past Medical Histor: Emphysema, blood clots/PE,CHRONIC PAIN, collapsed lung Past Surgical History: Other Additional Past Surgical Histo: PVD LASER SUGERY LT LEG, dilatation, peptic ulcer; urethral reconstruction Smoking Status: Current Some Day Smoker Plan: 1. Heparin drip has been discontinued. Pt is now on Eliquis. 2. Continue O2 support via nasal cannula 3. Continue home meds 4. Appreciate specialist input 5. Full code 6. Discharge tomorrow on Eliquis Comment Review of Relevant I have reviewed the following items stephane (where applicable) has been applied. Medications: Current Medications Medications (Trade) Dose Ordered Sig/Ashli Route PRN Reason Start Time Stop Time Status Last Admin Dose Admin Info (Anti-Coagulation Monitoring By Pharmacy) 1 each PRN DAILY PRN MC SEE COMMENTS 12/28/20 14:00 12/29/20 07:54 Alprazolam (Xanax) 0.25 mg PRN Q6HRS PRN PO ANXIETY 12/28/20 15:45 12/29/20 09:22 Acetaminophen/ Hydrocodone Bitart (Lortab 5/325) 1 tab QID PRN PO MODERATE-SEVERE PAIN 12/28/20 15:45 12/29/20 09:22 Lisinopril (Prinivil) 20 mg DAILY PO 12/28/20 16:00 12/29/20 08:08 Zolpidem Tartrate (Ambien) 5 mg QHS PO 12/28/20 21:00 12/28/20 20:06 Clonidine HCl (Catapres) 0.1 mg PRN Q6HRS PRN PO SBP>160 OR DBP>90 12/28/20 16:00 12/28/20 20:23 Pantoprazole Sodium (Protonix) 40 mg DAILYAC PO 12/28/20 16:30 12/29/20 08:08 Apixaban (Eliquis) 10 mg BID PO 12/29/20 10:00 01/04/21 21:01 12/29/20 10:22 Justifications for Admission Other Justification POORNIMA FONG III DO Dec 29, 2020 11:47
[2020-12-29 14:41] VITALS: BP 138/71
[2020-12-29] MEDS: ZOLPIDEM 5 MG TABLET. PO SCH (19:02)
[2020-12-29 19:50] VITALS: BP 158/90
[2020-12-29 22:57] VITALS: BP 159/88
[2020-12-30 03:09] VITALS: BP 143/84
[2020-12-30] MEDS: ALPRAZolam 0.25 MG TABLET PO PRN ×2 (06:07→12:59)
[2020-12-30] MEDS: HYDROcodone/APAP 5/325MG 1 TAB TABLET PO PRN ×2 (06:08→12:58)
[2020-12-30 07:00] VITALS: BP 156/85
--- NOTE | 2020-12-30 07:37 | PDOC ---
[employer] PROGRESS NOTE Date of Service DOS: DATE: 12/30/20 TIME: 07:36 Chief Complaint Chief Complaint Pulmonary emboli Diastolic CHF Anxiety, Bronchitis, COPD, Diabetes-Type II, DVT, Hypertension, P.U.D., Other Additional Past Medical Histor: Emphysema, blood clots/PE,CHRONIC PAIN, collapsed lung Past Surgical History: Other Additional Past Surgical Histo: PVD LASER SUGERY LT LEG, dilatation, peptic ulcer; urethral reconstruction Smoking Status: Current Some Day Smoker History of Present Illness History of Present Illness 12-29-20 - Pt seen and examined. - Heparin drip has been discontinued. Pt is now on Eliquis. - Juan RN. - Chart reviewed. 12/30: Patient seen and evaluated. Afebrile, breathing on room air. Currently on oral Eliquis. Charts and labs reviewed. May discharge today on lifetime anticoagulation. Discussed with RN. Greater than 30 minutes was spent managing the discharge this patient. Vitals/I&O Vitals/I&O: Vital Signs Date Time Temp Pulse Resp B/P (MAP) Pulse Ox O2 Delivery O2 Flow Rate FiO2 12/30/20 06:08 18 Room Air 12/30/20 03:09 97.8 75 143/84 (103) 100 2.0 97.8 I & O 12/29/20 12/29/20 12/30/20 15:00 23:00 07:00 Intake Total 750 ml 300 ml 0 ml Output Total 600 ml 700 ml Balance 150 ml 300 ml -700 ml Physical Exam General: Alert, Oriented X3, Cooperative Heart: Regular rate, Normal S1, Normal S2 Lungs: Clear Abdomen: Normal bowel sounds, Soft Extremities: No clubbing, No cyanosis Skin: No rashes, No breakdown Assessment and Plan Assessmemt and Plan Problems Medical Problems: (1) Bilateral pulmonary embolism Status: Acute (2) CHF (congestive heart failure) Status: Acute (3) Person under investigation for COVID-19 Status: Acute Comment Review of Relevant I have reviewed the following items stephane (where applicable) has been applied. Medications: Current Medications Medications (Trade) Dose Ordered Sig/Ashli Route PRN Reason Start Time Stop Time Status Last Admin Dose Admin Apixaban (Eliquis) 10 mg BID PO 12/29/20 10:00 01/04/21 21:01 12/29/20 19:02 Acetaminophen/ Hydrocodone Bitart (Lortab 5/325) 1 tab PRN Q4HRS PRN PO MODERATE-SEVERE PAIN 12/29/20 13:45 12/30/20 06:08 Justifications for Admission Other Justification CORINNE OROURKE MD Dec 30, 2020 07:37
[2020-12-30] MEDS: APIXABAN 5 MG TABLET. PO SCH (08:51)
[2020-12-30] MEDS: LISINOPRIL 20 MG TABLET PO SCH (08:52)
[2020-12-30] MEDS: PANTOPRAZOLE 40 MG TABLET.DR. PO SCH (08:52)
--- NOTE | 2020-12-30 09:54 | PDOC3 ---
Discharge Summary Visit Information Date of Admission: Dec 27, 2020 Date of Discharge: Dec 30, 2020 Final Diagnosis Problems Medical Problems: (1) Bilateral pulmonary embolism Status: Acute (2) CHF (congestive heart failure) Status: Acute (3) Person under investigation for COVID-19 Status: Acute Brief Hospital Course Allergies Allergies Coded Allergies Type Severity Reaction Last Updated Verified Iodinated Contrast Media Allergy Intermediate Hives 12/27/20 Yes Vital Signs Vital Signs Date Time Temp Pulse Resp B/P (MAP) Pulse Ox O2 Delivery O2 Flow Rate FiO2 12/30/20 08:52 69 156/85 12/30/20 07:08 95 Room Air 12/30/20 07:00 96.9 18 96.9 12/30/20 03:09 2.0 Lab Results Laboratory Tests Test 12/28/20 10:01 12/28/20 11:26 12/28/20 16:25 12/28/20 16:35 Heparin Anti-Xa Act, Unfractionated 0.42 IU/mL (0.30-0.70) 0.50 IU/mL (0.30-0.70) Glucose (Fingerstick) 111 mg/dL (70-99) 103 mg/dL (70-99) Test 12/28/20 21:04 12/29/20 04:30 Glucose (Fingerstick) 129 mg/dL (70-99) White Blood Count 6.3 x10^3/uL (4.0-11.0) Red Blood Count 3.97 x10^6/uL (4.30-5.70) Hemoglobin 12.4 g/dL (13.0-17.5) Hematocrit 37.7 % (39.0-53.0) Mean Corpuscular Volume 95 fL (79-100) Mean Corpuscular Hemoglobin 31 pg (25-35) Mean Corpuscular Hemoglobin Concent 33 g/dL (31-37) Red Cell Distribution Width 14.2 % (11.5-14.5) Platelet Count 163 x10^3/uL (140-400) Neutrophils (%) (Auto) 57 % (31-73) Lymphocytes (%) (Auto) 31 % (24-48) Monocytes (%) (Auto) 10 % (0-9) Eosinophils (%) (Auto) 2 % (0-3) Basophils (%) (Auto) 0 % (0-3) Neutrophils # (Auto) 3.6 x10^3/uL (1.8-7.7) Lymphocytes # (Auto) 1.9 x10^3/uL (1.0-4.8) Monocytes # (Auto) 0.6 x10^3/uL (0.0-1.1) Eosinophils # (Auto) 0.1 x10^3/uL (0.0-0.7) Basophils # (Auto) 0.0 x10^3/uL (0.0-0.2) Heparin Anti-Xa Act, Unfractionated 0.63 IU/mL (0.30-0.70) Sodium Level 143 mmol/L (136-145) Potassium Level 3.9 mmol/L (3.5-5.1) Chloride Level 107 mmol/L (98-107) Carbon Dioxide Level 29 mmol/L (21-32) Anion Gap 7 (6-14) Blood Urea Nitrogen 15 mg/dL (8-26) Creatinine 1.1 mg/dL (0.7-1.3) Estimated GFR (Cockcroft-Gault) 81.0 BUN/Creatinine Ratio 14 (6-20) Glucose Level 130 mg/dL (70-99) Calcium Level 8.4 mg/dL (8.5-10.1) Total Bilirubin 0.4 mg/dL (0.2-1.0) Aspartate Amino Transf (AST/SGOT) 13 U/L (15-37) Alanine Aminotransferase (ALT/SGPT) 27 U/L (16-63) Alkaline Phosphatase 84 U/L (46-116) Total Protein 6.0 g/dL (6.4-8.2) Albumin 3.0 g/dL (3.4-5.0) Albumin/Globulin Ratio 1.0 (1.0-1.7) Brief Hospital Course Mr. Titus is a 65 old male with history of PEs who presented with bilateral PE. CTA chest showed chronic appearing bilateral pulmonary emboli and several acute pulmonary emboli were also suspected. Ultrasound lower extremity negative for any DVT. Patient was admitted and placed on heparin infusion. Consultation placed to pulmonology. His heparin drip was later discontinued and patient was started on oral Eliquis. He is breathing comfortably on room air and will discharge home on Eliquis treatment indefinitely. He will need to follow-up with pulmonology and establish primary care. Discharge Information Condition at Discharge: Stable Disposition/Orders: D/C to Home w/ HH Scheduled Benzonatate (Tessalon Perle) 100 Mg Capsule, 100 MG PO TID, #20 Prescribed by: LOURDES FLORENCE on 11/05/13 0248 Lisinopril (Lisinopril) 10 Mg Tablet, 1 TAB PO DAILY, #14 Ref 5 Prescribed by: RAYRAY MAGDALENO on 08/17/16 0950 Last Action: HELD on 12/28/201541 by MIGDALIA PERSON MD Lisinopril (Lisinopril) 20 Mg Tablet, 1 TAB PO DAILY, #30 Ref 0 Prescribed by: JOSE HURST APRN on 01/08/20 1125 Last Action: Continued on 12/28/201541 by MIGDALIA PERSON MD Zolpidem Tartrate (Ambien) 10 Mg Tablet, 10 MG PO QHS, (Reported) Entered as Reported by: ASHLEY BATISTA on 11/05/13 0202 Last Action: Converted on 12/28/201541 by MIGDALIA PERSON MD Scheduled PRN Albuterol Sulfate (Proair Hfa Inhaler) 8.5 Gm Hfa.aer.ad, 1 PUFF INH PRN Q6HRS PRN for SHORTNESS OF BREATH, #1 Ref 0 Prescribed by: TANO RODAS APRN on 10/02/18 1635 Last Action: Continued on 12/28/201541 by MIGDALIA PERSON MD Albuterol Sulfate (Proair Hfa Inhaler) 8.5 Gm Hfa.aer.ad, 2 PUFF IH PRN Q4-6HRS PRN for wheezing for 21 Days, #1 Ref 0 Prescribed by: JOSE HURST APRN on 01/08/20 1131 Last Action: Continued on 12/28/201541 by MIGDALIA PERSON MD Benzonatate (Tessalon Perle) 100 Mg Capsule, 1 CAP PO TID PRN for COUGH, #15 Prescribed by: RAYRAY MAGDALENO on 08/17/16 0950 Last Action: Continued on 12/28/201541 by MIGDALIA PERSON MD Diphenhydramine Hcl (Benadryl) 25 Mg Capsule, 25 MG PO PRN Q6HRS PRN for ALLERGIES, #20 Prescribed by: AUBREE VARNER D.O. on 10/30/16 0323 Last Action: Continued on 12/28/201541 by MIGDALIA PERSON MD Hydrocodone/Apap 5-325 (Hood 5-325 Tablet) 1 Each Tablet, 1 TAB PO QID PRN for PAIN, #10 Prescribed by: TIFFANY HUDDLESTON MD on 05/10/17 0002 Last Action: Continued on 12/28/201541 by MIGDALIA PERSON MD Oxycodone Hcl (Oxycodone Hcl Immed.release) 10 Mg Tablet, 10 MG PO QID PRN, (Reported) Entered as Reported by: ASHLEY BATISTA on 11/05/13201 Last Action: HELD on 12/28/201541 by MIGDALIA PERSON MD Miscellaneous Medications Alprazolam (Xanax) 0.25 Mg Tablet, 0.25 MG PO, (Reported) Entered as Reported by: CHRISTEN SILVESTRE on 02/14/14 1244 Last Action: Continued on 12/28/201541 by MIGDALIA PERSON MD Hydroxyzine Pamoate (Vistaril) 25 Mg Capsule, 25 MG PO, (Reported) Entered as Reported by: ASHLEY BATISTA on 11/05/13201 Last Action: HELD on 12/28/201541 by MIGDALIA PERSON MD Discontinued Medications Bupropion Hcl (Bupropion Hcl) 75 Mg Tablet, 75 MG PO, (Reported) Discontinued Reason: NOT TAKING Entered as Reported by: ASHLEY BATISTA on 11/05/13201 Last Action: Discontinued on 12/28/20 155 by IDALIA JANE [facility] Justicifation of Admission Dx: Justifications for Admission: Justification of Admission Dx: Yes CORINNE ROOURKE MD Dec 30, 2020 09:53
--- NOTE | 2020-12-30 09:55 | SNU/HH DC ---
DISCHARGE WITH HOME HEALTH DISCHARGE INFORMATION: Final Diagnosis: Problems Medical Problems: (1) Bilateral pulmonary embolism Status: Acute (2) CHF (congestive heart failure) Status: Acute (3) Person under investigation for COVID-19 Status: Acute Condition on Discharge: Stable CODE STATUS: Code Status: Full HOME HEALTH: Face to Face: I certify this patient is under my care and that I, or a nurse practitioner or physician's rehabilitation assistant working with me, had a face to face encounter that meets the physician face to face encounter requirements with this patient on 12/30/2020. Medical Complications: CIRA RN For Eval/Treatment: Yes Pt Meets Homebound Status: Extreme weakness w/ amb., Limited distance walking POST DISCHARGE ORDERS: Activity Instructions for Disc: Activity as tolerated CERTIFICATION STATEMENT: Certification Statement: Certification Statement: Based on the above finding, I certify that this patient is confined to the home and needs intermittent half-way care, physical therapy and/or speech therapy, or continues to need occupational therapy.~ This patient is under my care, and I have initiated the establishment of the plan of care.~ This patient will be followed by myself or a community physician who will periodically review the plan of care. Home Meds Active Scripts Albuterol Sulfate (PROAIR HFA INHALER) 8.5 Gm Hfa.aer.ad, 2 PUFF IH PRN Q4-6HRS PRN for wheezing for 21 Days, #1 INHALER 0 Refills Prov:JOSE HURST APRN 01/08/20 Lisinopril (LISINOPRIL) 20 Mg Tablet, 1 TAB PO DAILY, #30 TAB 0 Refills Prov:JOSE HURST APRN 01/08/20 Albuterol Sulfate (PROAIR HFA INHALER) 8.5 Gm Hfa.aer.ad, 1 PUFF INH PRN Q6HRS PRN for SHORTNESS OF BREATH, #1 INHALER 0 Refills Prov:TANO RODAS APRN 10/02/18 Hydrocodone/Apap 5-325 (NORCO 5-325 TABLET) 1 Each Tablet, 1 TAB PO QID PRN for PAIN, #10 TAB Prov:TIFFANY HUDDLESTON MD 05/10/17 Diphenhydramine Hcl (BENADRYL) 25 Mg Capsule, 25 MG PO PRN Q6HRS PRN for ALLERGIES, #20 Prov:AUBREE VARNER DO 10/30/16 Benzonatate (TESSALON PERLE) 100 Mg Capsule, 1 CAP PO TID PRN for COUGH, #15 CAP Prov:RAYRAY MAGDALENO MD 08/17/16 Lisinopril (LISINOPRIL) 10 Mg Tablet, 1 TAB PO DAILY, #14 TAB 5 Refills Prov:RAYRAY MAGDALENO MD 08/17/16 Benzonatate (TESSALON PERLE) 100 Mg Capsule, 100 MG PO TID, #20 Prov:LOURDES FLORENCE MD 11/05/13 Reported Medications Alprazolam (XANAX) 0.25 Mg Tablet, 0.25 MG PO 02/14/14 Zolpidem Tartrate (AMBIEN) 10 Mg Tablet, 10 MG PO QHS 11/05/13 Hydroxyzine Pamoate (VISTARIL) 25 Mg Capsule, 25 MG PO 11/05/13 Oxycodone Hcl (OXYCODONE HCL IMMED.RELEASE) 10 Mg Tablet, 10 MG PO QID PRN 11/05/13 Discontinued Reported Medications Bupropion Hcl (BUPROPION HCL) 75 Mg Tablet, 75 MG PO 11/05/13 CORINNE OROURKE MD Dec 30, 2020 09:55
[2020-12-30] MEDS ORDERED: BENZ100C PO (10:00)
[2020-12-30] MEDS ORDERED: LISI20TA18 PO (10:00)
--- NOTE | 2020-12-30 10:51 | NUR ---
pt refused home health.
[2020-12-30 11:09] VITALS: BP 144/82
--- NOTE | 2020-12-30 13:15 | NUR ---
Discharge Note: VANNESSA ZAMORA Discharge instructions and discharge home medications reviewed with Patient and a copy given. All questions have been answered and understanding verbalized. The following instructions and handouts were given: medication scripts, discharge instructions, and follow up. Discontinued lines and drains: peripheral IV discontinued. Patient discharged to home via ambulation accompanied by family.
--- NOTE | 2020-12-30 13:33 | NUR ---
SS following up with discharge planning. Discharge orders received for home healthcare. Pt declined home healthcare services.
[2021-03-29] MEDS ORDERED: DOXY-181 PO (14:12)
[2021-03-29] MEDS ORDERED: APIX5TAB PO (14:12)
[2021-03-29] MEDS ORDERED: LOSA-73 PO (14:12)
[2021-03-29] MEDS ORDERED: AMLO-186 PO (14:12)
[2021-03-29] MEDS ORDERED: [UNRECOGNIZED DRUG - CODE] PO (14:12)
[2021-03-29] MEDS ORDERED: PRED20TA PO (14:12)
[2021-03-29] MEDS ORDERED: PANT40TA77 PO (14:14)
== END 2020-12-30 13:15 | disposition home or self-care (01) | DRG 175 ==
LOC: ER 11:28 → 6 SOUTH 16:42 → 2 SOUTH 12-28 21:33
PROVIDERS: ADMIT Family Medicine; ATTEND Family Medicine
DX: I26.09 Other pulmonary embolism with acute cor pulmonale (principal); I50.30 Unspecified diastolic (congestive) heart failure; F41.9 Anxiety disorder, unspecified; Z86.718 Personal history of other venous thrombosis and embolism; J43.9 Emphysema, unspecified; G89.29 Other chronic pain; E11.51 Type 2 diabetes mellitus with diabetic peripheral angiopathy without gangrene; F14.10 Cocaine abuse, uncomplicated; R09.02 Hypoxemia; F17.200 Nicotine dependence, unspecified, uncomplicated; E78.5 Hyperlipidemia, unspecified; F19.90 Other psychoactive substance use, unspecified, uncomplicated; I11.0 Hypertensive heart disease with heart failure; Z20.822 Contact with and (suspected) exposure to COVID-19; Z87.11 Personal history of peptic ulcer disease; Z91.041 Radiographic dye allergy status; Z86.711 Personal history of pulmonary embolism; Z79.899 Other long term (current) drug therapy
CPT/HCPCS: 36415; 51702; 71045; 71275; 80053; 80307; 81001; 82553; 82962; 83690; 83735; 83880; 84484; 85025; 85379; 85520; 87040; 87086; 87491; 87591; 93005; 93970; 96365; 96375; 99285; J0696; J1200; J1644; J2405; J2930; J3010; J3490; Q9967; U0003; G0378; Q0163

== ENCOUNTER 2021-03-26 04:51 | Inpatient (IN) | payer MEDICAID ==
[~2021-03-26] VITALS: Ht 182.9 cm; Wt 94.0 kg
[2021-03-26 05:30] LABS: BASO % 1 % (0-3); EOS # 0.3 x10^3/uL (0.0-0.7); EOS % 3 % (0-3); HEMATOCRIT 42.8 % (39.0-53.0); HEMOGLOBIN 14.1 g/dL (13.0-17.5); LYMPH # 1.7 x10^3/uL (1.0-4.8); LYMPH % 21 % (24-48); MEAN CORPUSCULAR HEMOGLOBIN 31 pg (25-35); MEAN CORPUSCULAR HGB CONC 33 g/dL (31-37); MEAN CORPUSCULAR VOLUME 95 fL (79-100); MONO # 1.1 x10^3/uL (0.0-1.1); MONO % 14 % (0-9); NEUT # 4.9 x10^3/uL (1.8-7.7); NEUT % 61 % (31-73); PLATELET COUNT 186 x10^3/uL (140-400); RED BLOOD COUNT 4.51 x10^6/uL (4.30-5.70); RED CELL DISTRIBUTION WIDTH 13.8 % (11.5-14.5); WHITE BLOOD COUNT 8.1 x10^3/uL (4.0-11.0)
--- NOTE | 2021-03-26 05:39 | RAD ---
Single view chest dated 03/26/2021. Comparison made to 12/27/2020. Clinical data indication: Cough and shortness of breath. FINDINGS: Single upright portable exam performed. Heart and mediastinal contours are stable. Patchy infrahilar opacities, similar to prior study. No consolidation or pleural effusion. IMPRESSION: No acute radiographic abnormality. Stable findings compared to 12/27/2020. Electronically signed by: Rayo Gonzalez MD (03/26/2021 5:37 AM) [place]
[2021-03-26 05:41] LABS: CALCIUM 8.7 mg/dL (8.5-10.1); CREATININE 1.2 mg/dL (0.7-1.3); GFR 73.3; POTASSIUM 4.3 mmol/L (3.5-5.1)
[2021-03-26 05:49] LABS: ALBUMIN 3.8 g/dL (3.4-5.0); ALBUMIN/GLOBULIN RATIO 1.1 (1.0-1.7); MAGNESIUM 2.1 mg/dL (1.8-2.4); TOTAL BILIRUBIN 0.9 mg/dL (0.2-1.0); TOTAL PROTEIN 7.3 g/dL (6.4-8.2)
--- NOTE | 2021-03-26 05:50 | PHYS DOC ---
Past Medical History Past Medical History: Anxiety, Bronchitis, COPD, Diabetes-Type II, DVT, Hypertension, P.U.D., Other Additional Past Medical Histor: Emphysema, blood clots/PE,CHRONIC PAIN, collapsed lung Past Surgical History: Other Additional Past Surgical Histo: PVD LASER SUGERY LT LEG, dilatation, peptic ulcer; urethral reconstruction Smoking Status: Current Every Day Smoker Alcohol Use: Occasionally Drug Use: None General Adult EDM: Chief Complaint: SHORTNESS OF BREATH HPI: HPI: Patient is a 65 year old [male who presented to ER due to 5-day history of nonproductive cough and trouble breathing. Patient has history of COPD, is on oxygen at home. Patient woke up this morning with worsening trouble breathing so he called EMS, EMS gave him a DuoNeb treatment on route here. Patient denies any fever. Patient had not had Covid 19 vaccination. Patient was admitted here a few months ago, tested negative for COVID-19. Patient denies any headache, no abdominal pain, no nausea vomiting. Patient denies any chest pain. Review of Systems: Review of Systems: Constitutional: Denies fever or chills. [] Eyes: Denies change in visual acuity. [] HENT: Denies nasal congestion or sore throat. [] Respiratory: Positive for cough and trouble breathing. Cardiovascular: Denies chest pain or edema. [] GI: Denies abdominal pain, nausea, vomiting, bloody stools or diarrhea. [] : Denies dysuria. [] Musculoskeletal: Denies back pain or joint pain. [] Integument: Denies rash. [] Neurologic: Denies headache, focal weakness or sensory changes. [] Endocrine: Denies polyuria or polydipsia. [] Lymphatic: Denies swollen glands. [] Psychiatric: Denies depression or anxiety. [] Heart Score: C/O Chest Pain: N/A Risk Factors: Risk Factors: DM, Current or recent (<one month) smoker, HTN, HLP, family history of CAD, obesity. Risk Scores: Score 0 - 3: 2.5% MACE over next 6 weeks - Discharge Home Score 4 - 6: 20.3% MACE over next 6 weeks - Admit for Clinical Observation Score 7 - 10: 72.7% MACE over next 6 weeks - Early Invasive Strategies Allergies: Allergies: Allergies Coded Allergies Type Severity Reaction Last Updated Verified Iodinated Contrast Media Allergy Intermediate Hives 12/27/20 Yes Physical Exam: PE: Constitutional: Well developed, well nourished, no acute distress, non-toxic appearance. [] HENT: Normocephalic, atraumatic, bilateral external ears normal, oropharynx moist, no oral exudates, nose normal. [] Eyes: PERRLA, EOMI, conjunctiva normal, no discharge. [] Neck: Normal range of motion, no tenderness, supple, no stridor. [] Cardiovascular:Heart rate regular rhythm, no murmur [] Lungs & Thorax: Bilateral breath with expiratory wheezing to auscultation , No RESPIRATORY DISTRESS. Abdomen: Bowel sounds normal, soft, no tenderness, no masses, no pulsatile mass es. [] Skin: Warm, dry, no erythema, no rash. [] Back: No tenderness, no CVA tenderness. [] Extremities: No tenderness, no cyanosis, no clubbing, ROM intact, MILD PITTING EDEMA, 1 PLUS. Neurologic: Alert and oriented X 3, normal motor function, normal sensory function, no focal deficits noted. [] Psychologic: Affect normal, judgement normal, mood normal. [] Current Patient Data: Labs: Laboratory Tests Test 03/26/21 04:55 White Blood Count 8.1 x10^3/uL (4.0-11.0) Red Blood Count 4.51 x10^6/uL (4.30-5.70) Hemoglobin 14.1 g/dL (13.0-17.5) Hematocrit 42.8 % (39.0-53.0) Mean Corpuscular Volume 95 fL (79-100) Mean Corpuscular Hemoglobin 31 pg (25-35) Mean Corpuscular Hemoglobin Concent 33 g/dL (31-37) Red Cell Distribution Width 13.8 % (11.5-14.5) Platelet Count 186 x10^3/uL (140-400) Neutrophils (%) (Auto) 61 % (31-73) Lymphocytes (%) (Auto) 21 % (24-48) L Monocytes (%) (Auto) 14 % (0-9) H Eosinophils (%) (Auto) 3 % (0-3) Basophils (%) (Auto) 1 % (0-3) Neutrophils # (Auto) 4.9 x10^3/uL (1.8-7.7) Lymphocytes # (Auto) 1.7 x10^3/uL (1.0-4.8) Monocytes # (Auto) 1.1 x10^3/uL (0.0-1.1) Eosinophils # (Auto) 0.3 x10^3/uL (0.0-0.7) Basophils # (Auto) 0.0 x10^3/uL (0.0-0.2) Sodium Level 141 mmol/L (136-145) Potassium Level 4.3 mmol/L (3.5-5.1) Chloride Level 103 mmol/L (98-107) Carbon Dioxide Level 28 mmol/L (21-32) Anion Gap 10 (6-14) Blood Urea Nitrogen 18 mg/dL (8-26) Creatinine 1.2 mg/dL (0.7-1.3) Estimated GFR (Cockcroft-Gault) 73.3 BUN/Creatinine Ratio 15 (6-20) Glucose Level 91 mg/dL (70-99) Calcium Level 8.7 mg/dL (8.5-10.1) Magnesium Level Pending Total Bilirubin Pending Aspartate Amino Transferase (AST) Pending Alanine Aminotransferase (ALT) Pending Alkaline Phosphatase Pending Total Protein Pending Albumin Pending Albumin/Globulin Ratio Pending Laboratory Tests 03/26/21 04:55 Laboratory Tests 03/26/21 04:55 Vital Signs: Vital Signs Date Time Temp Pulse Resp B/P (MAP) Pulse Ox O2 Delivery O2 Flow Rate FiO2 03/26/21 04:55 97.8 98 24 140/75 (96) 96 High Flow Nasal Cannula 4.0 97.8 EKG: EKG: EKG was done at 550, heart rate 91 bpm, sinus rhythm, normal axis, no ST segment ovation Radiology/Procedures: Radiology/Procedures: [][facility] [address] [place], [place] [id number] IMAGING REPORT Signed PATIENT: VANNESSA ZAMORA ACCOUNT: [id number] : 1955 LOCATION: ER AGE: 65 SEX: M EXAM STATUS: REG ER ORD. PHYSICIAN: SHELLEY MORENO DO REASON: soa, cough PROCEDURE: CHEST AP ONLY Single view chest dated 03/26/2021. Comparison made to 12/27/2020. Clinical data indication: Cough and shortness of breath. FINDINGS: Single upright portable exam performed. Heart and mediastinal contours are stable. Patchy infrahilar opacities, similar to prior study. No consolidation or pleural effusion. IMPRESSION: No acute radiographic abnormality. Stable findings compared to 12/27/2020. Electronically signed by: Rayo Gonzalez MD (03/26/2021 5:37 AM) [facility] [place] DICTATED and SIGNED BY: RAYO GONZALEZ MD DATE: 03/26/21 [id number] Course & Med Decision Making: Course & Med Decision Making Pertinent Labs and Imaging studies reviewed. (See chart for details) Jason Disclaimer: Jason Disclaimer: This electronic medical record was generated, in whole or in part, using a voice recognition dictation system. Departure Departure Impression: Primary Impression: COPD with exacerbation Additional Impression: Person under investigation for COVID-19 Disposition: ADMITTED INPATIENT Admitting Physician: JO-ANN () Condition: STABLE Referrals: NO PCP (PCP) SHELLEY MORENO DO Mar 26, 2021 05:50
--- NOTE | 2021-03-26 05:58 | EKG ---
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
--- NOTE | 2021-03-26 06:02 | EKG ---
[facility] [address] [place] [address] Test Date: 2021-03-26 Test Time: 05:50:05 Pat Name: VANNESSA ZAMORA Department: Room: Gender: M Vault Person: : 1955 Requested By: SHELLEY MORENO Order Number: [id number] Reading MD: Measurements Intervals [place] Rate: 91 P: 78 WI: 140 QRS: 47 QRSD: 80 T: 88 QT: 358 QTc: 442 Interpretive Statements SINUS RHYTHM LEFT ATRIAL ABNORMALITY ABNORMAL ECG RI6.02 No previous ECG available for comparison
[2021-03-26] MEDS ORDERED: ALBUTEROL SULFATE 2.5 MG/3 ML NEBU. INH PRN (06:15)
[2021-03-26] MEDS ORDERED: methylPREDNISolone SOD SUCC PF 125 MG/2 ML VIAL. IV ONE (06:15)
[2021-03-26] MEDS ORDERED: IPRATRPIUM/ALBUTEROL 0.5/2.5MG 3 ML NEBU. NEB ONE (06:15)
[2021-03-26] MEDS: ANTI-COAG MONITOR BY PHARMACY. MC PRN (06:24)
[2021-03-26] MEDS ORDERED: ONDANSETRON PF 4 MG/2 ML VIAL. IV PRN ×2 (06:30→16:15)
--- NOTE | 2021-03-26 07:25 | PDOC1 ---
History and Physical Date of Admission Date of Admission DATE: 03/26/21 TIME: 07:25 Identification/Chief Complaint Chief Complaint Shortness of breath Source Source: Patient History of Present Illness History of Present Illness Mr Titus is a 65 yo M w/PMHx anxiety, COPD, DM2, HTN, PUD, urethral strictures s/p reconstruction, smoker, polysubtance abuse (prior cocaine user), and DVT/PE who presented to ER due to 5-day history of nonproductive cough and trouble breathing. Patient woke up in the morning with worsening trouble breathing so he called EMS, EMS gave him a DuoNeb treatment on route here. Notably he was hyp oxic to 84% and required O2 enroute as well. Seen on O2 in ED, still feeling short of breath, weak. Patient denies any fever. Patient had not had Covid 19 vaccinations. He notes no recent sick contacts Patient was admitted here a few months ago, tested negative for COVID-19, but was diagnosed with recurrence of PE and placed back on anticoagulation and discharged home. Patient denies any headache, no abdominal pain, no nausea vomiting. Patient denies any chest pain. Chest radiograph with patchy infrahilar opacities, this appears similar to prior November 2020 radiograph. EKG sinus rhythm [address] segment or T wave abnormalities. Actually T wave abnormalities on prior EKG resolved. BNP 322, troponin 0, CR 1.2, CBC with no abnormalities and metabolic panel with no other abnormalities. Admitted for further care. Past Medical History Cardiovascular: HTN Pulmonary: Bronchitis, COPD, Pulmonary embolus Psych: Anxiety, Addictions Past Surgical History Past Surgical History: Other (Urethral reconstruction) Family History Family History: High Cholestrol, Hypertension Social History Smoke: 1 pack per day ALCOHOL: none Drugs: Cocaine Current Problem List Problem List Problems Medical Problems: (1) COPD with exacerbation Status: Acute (2) Person under investigation for COVID-19 Status: Acute Current Medications Current Medications Current Medications Methylprednisolone Sodium Succinate (SOLU-Medrol 125MG VIAL) 125 mg 1X ONCE IV Last administered on 03/26/21at 06:05; Start 03/26/21 at 06:15; Stop 03/26/21 at 06:16; Status DC Albuterol/ Ipratropium (Duoneb) 3 ml 1X ONCE NEB Last administered on at 05:59; Start 03/26/21 at 06:15; Stop 03/26/21 at 06:16; Status DC Ondansetron HCl (Zofran) 4 mg PRN Q8HRS PRN IV NAUSEA/VOMITING 1ST CHOICE; Start 03/26/21 at 06:30; Stop 03/27/21 at 06:29 Albuterol Sulfate (Ventolin Neb Soln) 2.5 mg PRN Q4HRS PRN INH wheezing; Start 03/26/21 at 06:15 Benzonatate (Tessalon Perle) 100 mg PRN TID PRN PO COUGH; Start 03/26/21 at 06:15 Apixaban (Eliquis) 5 mg BID PO ; Start 03/26/21 at 09:00 Info (Anti-Coagulation Monitoring By Pharmacy) 1 each PRN DAILY PRN MC SEE COMMENTS Last administered on 03/26/21at 06:24; Start 03/26/21 at 06:30 Active Scripts Active Lisinopril 20 Mg Tablet 1 Tab PO DAILY Tessalon Perle (Benzonatate) 100 Mg Capsule 1 Cap PO TID PRN Proair Hfa Inhaler (Albuterol Sulfate) 8.5 Gm Hfa.aer.ad 2 Puff IH PRN Q4-6HRS PRN 21 Days [place] 5-325 Tablet (Acetaminophen/Hydrocodone Bitart) 1 Each Tablet 1 Tab PO QID PRN Benadryl (Diphenhydramine Hcl) 25 Mg Capsule 25 Mg PO PRN Q6HRS PRN Reported Xanax (Alprazolam) 0.25 Mg Tablet 0.25 Mg PO Allergies Allergies: Coded Allergies: Iodinated Contrast Media (Verified Allergy, Intermediate, Hives, 12/27/20) ROS General: YES: Fatigue, Malaise; No: Chills, Night Sweats, Appetite, Other PSYCHOLOGICAL ROS: YES: Anxiety; No: Behavioral Disorder, Concentration difficultie, Decreased libido, Depression, Disorientation, Hallucinations, Hostility, Irritablity, Memory difficulties, Mood Swings, Obsessive thoughts, Physical abuse, Sexual abuse, Sleep disturbances, Suicidal ideation, Other Eyes: No Blurry vision, No Decreased vision, No Double vision, No Dry eyes, No Excessive tearing, No Eye Pain, No Itchy Eyes, No Loss of vision, No Photophobia, No Scotomata, No Uses contacts, No Uses glasses, No Other HEENT: No: Heacaches, Visual Changes, Hearing change, Nasal congestion, Nasal discharge, Oral lesions, Sinus pain, Sore Throat, Epistaxis, Sneezing, Snoring, Tinnitus, Vertigo, Vocal changes, Other ALLERGY AND IMMUNOLOGY: No: Hives, Insect Bite Sensitivity, Itchy/Watery Eyes, Nasal Congestion, Post Nasal Drip, Seasonal Allergies, Other Hematological and Lymphatic: YES: Blood Clots; No: Bleeding Problems, Blood Transfusions, Brusing, Night Sweats, Pallor, Swollen Lymph Nodes, Other ENDOCRINE: No: Breast Changes, Galactorrhea, Hair Pattern Changes, Hot Flashes, Malaise/lethargy, Mood Swings, Palpitations, Polydipsia/polyuria, Skin Changes, Temperature Intolerance, Unexpected Weight Changes, Other Breast: No New/Changing Breast Lumps, No Nipple changes, No Nipple discharge, No Other Respiratory: YES: Cough, Shortness of breath, SOB with excertion, Tachypnea, Wheezing; No: Hemoptysis, Orthopnea, Pleuritic Pain, Sputum Changes, Stridor, Other Cardiovascular: No Chest Pain, No Palpitations, No Orthopnea, No Paroxysmal Noc. Dyspnea, No Edema, No Lt Headedness, No Other Gastrointestinal: No Nausea, No Vomiting, No Abdominal Pain, No Diarrhea, No Constipation, No Melena, No Hematochezia, No Other Genitourinary: No Dysuria, No Frequency, No Incontinence, No Hematuria, No Retention, No Discharge, No Urgency, No Pain, No Flank Pain, No Other, No , No , No , No , No , No , No Musculoskeletal: No Gait Disturbance, No Joint Pain, No Joint Stiffness, No Joint Swelling, No Muscle Pain, No Muscular Weakness, No Pain In:, No Swelling In:, No Other Neurological: No Behavorial Changes, No Bowel/Bladder ControlChng, No Confusion, No Dizziness, No Gait Disturbance, No Headaches, No Impaired Coord/balance, No Memory Loss, No Numbness/Tingling, No Seizures, No Speech Problems, No Tremors, No Visual Changes, No Weakness, No Other Skin: No Dry Skin, No Eczema, No Hair Changes, No Lumps, No Mole Changes, No Mottling, No Nail Changes, No Pruritus, No Rash, No Skin Lesion Changes, No Other, No Acne Physical Exam General: Alert, Oriented X3, Cooperative, moderate distress HEENT: Atraumatic, PERRLA, EOMI, Mucous membr. moist/pink Lungs: Other (Diffuse wheezes) Heart: S1S2, RRR, no thrills, no rubs, no gallops, no murmurs Abdomen: Normal bowel sounds, Soft, No tenderness, No hepatosplenomegaly, No masses Rectal Exam: not examined Extremities: No clubbing, No cyanosis, No edema, Normal pulses, No tenderness/swelling Skin: No rashes, No breakdown, No significant lesion Neuro: Normal gait, Normal speech, Strength at 5/5 X4 ext, Normal tone, Sensati on intact, Cranial nerves 3-12 NL, Reflexes 2+ Psych/Mental Status: Mental status NL, Mood NL Vitals Vitals Vital Signs Date Time Temp Pulse Resp B/P (MAP) Pulse Ox O2 Delivery O2 Flow Rate FiO2 03/26/21 06:02 88 20 147/85 (105) 98 High Flow Nasal Cannula 4.0 03/26/21 04:55 97.8 97.8 Labs Labs Laboratory Tests Test 03/26/21 04:55 White Blood Count 8.1 x10^3/uL (4.0-11.0) Red Blood Count 4.51 x10^6/uL (4.30-5.70) Hemoglobin 14.1 g/dL (13.0-17.5) Hematocrit 42.8 % (39.0-53.0) Mean Corpuscular Volume 95 fL (79-100) Mean Corpuscular Hemoglobin 31 pg (25-35) Mean Corpuscular Hemoglobin Concent 33 g/dL (31-37) Red Cell Distribution Width 13.8 % (11.5-14.5) Platelet Count 186 x10^3/uL (140-400) Neutrophils (%) (Auto) 61 % (31-73) Lymphocytes (%) (Auto) 21 % (24-48) Monocytes (%) (Auto) 14 % (0-9) Eosinophils (%) (Auto) 3 % (0-3) Basophils (%) (Auto) 1 % (0-3) Neutrophils # (Auto) 4.9 x10^3/uL (1.8-7.7) Lymphocytes # (Auto) 1.7 x10^3/uL (1.0-4.8) Monocytes # (Auto) 1.1 x10^3/uL (0.0-1.1) Eosinophils # (Auto) 0.3 x10^3/uL (0.0-0.7) Basophils # (Auto) 0.0 x10^3/uL (0.0-0.2) Sodium Level 141 mmol/L (136-145) Potassium Level 4.3 mmol/L (3.5-5.1) Chloride Level 103 mmol/L (98-107) Carbon Dioxide Level 28 mmol/L (21-32) Anion Gap 10 (6-14) Blood Urea Nitrogen 18 mg/dL (8-26) Creatinine 1.2 mg/dL (0.7-1.3) Estimated GFR (Cockcroft-Gault) 73.3 BUN/Creatinine Ratio 15 (6-20) Glucose Level 91 mg/dL (70-99) Calcium Level 8.7 mg/dL (8.5-10.1) Magnesium Level 2.1 mg/dL (1.8-2.4) Total Bilirubin 0.9 mg/dL (0.2-1.0) Aspartate Amino Transf (AST/SGOT) 25 U/L (15-37) Alanine Aminotransferase (ALT/SGPT) 16 U/L (16-63) Alkaline Phosphatase 94 U/L (46-116) Troponin I Quantitative < 0.017 ng/mL (0.000-0.055) DW-Rlb-V-Type Natriuretic Peptide 322 pg/mL (0-124) Total Protein 7.3 g/dL (6.4-8.2) Albumin 3.8 g/dL (3.4-5.0) Albumin/Globulin Ratio 1.1 (1.0-1.7) Laboratory Tests Test 03/26/21 04:55 White Blood Count 8.1 x10^3/uL (4.0-11.0) Red Blood Count 4.51 x10^6/uL (4.30-5.70) Hemoglobin 14.1 g/dL (13.0-17.5) Hematocrit 42.8 % (39.0-53.0) Mean Corpuscular Volume 95 fL (79-100) Mean Corpuscular Hemoglobin 31 pg (25-35) Mean Corpuscular Hemoglobin Concent 33 g/dL (31-37) Red Cell Distribution Width 13.8 % (11.5-14.5) Platelet Count 186 x10^3/uL (140-400) Neutrophils (%) (Auto) 61 % (31-73) Lymphocytes (%) (Auto) 21 % (24-48) Monocytes (%) (Auto) 14 % (0-9) Eosinophils (%) (Auto) 3 % (0-3) Basophils (%) (Auto) 1 % (0-3) Neutrophils # (Auto) 4.9 x10^3/uL (1.8-7.7) Lymphocytes # (Auto) 1.7 x10^3/uL (1.0-4.8) Monocytes # (Auto) 1.1 x10^3/uL (0.0-1.1) Eosinophils # (Auto) 0.3 x10^3/uL (0.0-0.7) Basophils # (Auto) 0.0 x10^3/uL (0.0-0.2) Sodium Level 141 mmol/L (136-145) Potassium Level 4.3 mmol/L (3.5-5.1) Chloride Level 103 mmol/L (98-107) Carbon Dioxide Level 28 mmol/L (21-32) Anion Gap 10 (6-14) Blood Urea Nitrogen 18 mg/dL (8-26) Creatinine 1.2 mg/dL (0.7-1.3) Estimated GFR (Cockcroft-Gault) 73.3 BUN/Creatinine Ratio 15 (6-20) Glucose Level 91 mg/dL (70-99) Calcium Level 8.7 mg/dL (8.5-10.1) Magnesium Level 2.1 mg/dL (1.8-2.4) Total Bilirubin 0.9 mg/dL (0.2-1.0) Aspartate Amino Transf (AST/SGOT) 25 U/L (15-37) Alanine Aminotransferase (ALT/SGPT) 16 U/L (16-63) Alkaline Phosphatase 94 U/L (46-116) Troponin I Quantitative < 0.017 ng/mL (0.000-0.055) MK-Pjd-E-Type Natriuretic Peptide 322 pg/mL (0-124) Total Protein 7.3 g/dL (6.4-8.2) Albumin 3.8 g/dL (3.4-5.0) Albumin/Globulin Ratio 1.1 (1.0-1.7) Images Images Chest radiograph: Single upright portable exam performed. Heart and mediastinal contours are stable. Patchy infrahilar opacities, similar to prior study. No consolidation or pleural effusion. IMPRESSION: No acute radiographic abnormality. Stable findings compared to 12/27/2020. VTE Prophylaxis Ordered VTE Prophylaxis Devices: Yes VTE Pharmacological Prophylaxi: Yes Assessment/Plan Assessment/Plan A/P: Acute hypoxic respiratory failure - likely COPD exacerbation in the setting of continued smoking. Given steroids and nebulizers. No claudication for antibiotics given no change in sputum no clear sign of pneumonia. Previous history of deep venous thrombosis and pulmonary embolism - on lifelong anticoagulation with eliquis. Has previously stopped his anticoagulation and was readmitted for this November 2020 Polysubstance use - counseled on cessation Tobacco dependence - counseled on cessation Emphysema - with acute COPD exacerbation. Will give nebs, steroids Anxiety - counseled, atarax prn HTN - cont meds PUD - PPI Urethral strictures s/p reconstruction FEN - General diet PPX - eliquis CODE - FULL CODE Dispo - inpatient COVID-19 CRITERIA: The patient was evaluated during the global COVID-19 pandemic, and that diagnosis was suspected/considered upon their initial presentation. Their evaluation, treatment and testing was consistent with current guidelines for patients who present with complaints or symptoms that may be related to COVID-19. Justifications for Admission Other Justification SONNY BUI MD Mar 26, 2021 07:25
[2021-03-26] MEDS: BENZONATATE 100 MG CAPSULE. PO PRN (11:05)
[2021-03-26] MEDS: APIXABAN 5 MG TABLET. PO SCH ×3 (11:05→20:47)
[2021-03-26 15:00] VITALS: BP 139/81
[2021-03-26] MEDS: IPRATRPIUM/ALBUTEROL 0.5/2.5MG 3 ML NEBU. NEB SCH ×2 (15:45→20:52)
[2021-03-26] MEDS ORDERED: DEXTROSE 50% 25 GM / 50ML DISP.SYRIN. IV PRN (16:30)
[2021-03-26] MEDS: methylPREDNISolone SOD SUCC PF 40 MG/ML VIAL. IV SCH ×2 (17:32→21:41)
[2021-03-26] MEDS: traMADol 50 MG TABLET PO PRN (17:32)
[2021-03-26] MEDS: INSULIN LISPRO 300 UNITS/3 ML VIAL. SQ SCH (17:37)
[2021-03-26 19:00] VITALS: BP 161/76
[2021-03-26] MEDS: ZOLPIDEM 5 MG TABLET. PO PRN ×2 (20:40→21:41)
[2021-03-26] MEDS: guaiFENesin/CODEINE 100mg/10mg 5 ML LIQUID PO PRN (20:40)
[2021-03-26] MEDS: BUDESONIDE 0.5 MG/2 ML NEBU. NEB SCH (20:52)
[2021-03-26] MEDS ORDERED: diazePAM 5 MG TABLET PO ONE (21:58)
[2021-03-26 23:30] VITALS: BP 143/67
--- NOTE | 2021-03-26 23:58 | NUR ---
Patient refused HS dose of eliquis, states the he only takes medication once daily.
--- NOTE | 2021-03-27 00:06 | NUR ---
Patient inconsistently reports dose and frequency of medication when attempting to review. External med history is not current. Pharmacy closed and unable to call and verify at this time.
[2021-03-27] MEDS: guaiFENesin/CODEINE 100mg/10mg 5 ML LIQUID PO PRN ×4 (02:52→22:37)
[2021-03-27 03:15] VITALS: BP 167/84
[2021-03-27] MEDS: methylPREDNISolone SOD SUCC PF 40 MG/ML VIAL. IV SCH ×3 (05:56→22:37)
[2021-03-27 07:00] VITALS: BP 173/98
[2021-03-27] MEDS: IPRATRPIUM/ALBUTEROL 0.5/2.5MG 3 ML NEBU. NEB SCH ×4 (08:03→20:28)
[2021-03-27] MEDS: BUDESONIDE 0.5 MG/2 ML NEBU. NEB SCH ×2 (08:03→20:28)
[2021-03-27] MEDS: APIXABAN 5 MG TABLET. PO SCH ×2 (08:55→22:38)
[2021-03-27] MEDS: traMADol 50 MG TABLET PO PRN ×2 (08:55→18:21)
[2021-03-27] MEDS: INSULIN LISPRO 300 UNITS/3 ML VIAL. SQ SCH ×3 (09:00→17:07)
--- NOTE | 2021-03-27 10:55 | NUR ---
SW following. Discussed with RN, pt from home, 4L (does not use oxygen at home), cardiac diet, COVID-19 negative. No consults as of yet. RN advised no SW needs at this time. SW will continue to follow.
[2021-03-27 11:00] VITALS: BP 135/75
--- NOTE | 2021-03-27 11:41 | PDOC ---
[facility] PROGRESS NOTE Date of Service DOS: DATE: 03/27/21 TIME: 11:39 Chief Complaint Chief Complaint A/P: Acute hypoxic respiratory failure - likely COPD exacerbation in the setting of continued smoking. Given steroids and nebulizers. No claudication for antibiotics given no change in sputum no clear sign of pneumonia. Previous history of deep venous thrombosis and pulmonary embolism - on lifelong anticoagulation with eliquis. Has previously stopped his anticoagulation and was readmitted for this November 2020 Polysubstance use - counseled on cessation Tobacco dependence - counseled on cessation Emphysema - with acute COPD exacerbation. Will give nebs, steroids Anxiety - counseled, atarax prn HTN - cont meds PUD - PPI Urethral strictures s/p reconstruction FEN - General diet PPX - eliquis CODE - FULL CODE Dispo - inpatient History of Present Illness History of Present Illness Mr Titus is a 65 yo M w/PMHx anxiety, COPD, DM2, HTN, PUD, urethral strictures s/p reconstruction, smoker, polysubtance abuse (prior cocaine user), and DVT/PE who presented to ER due to 5-day history of nonproductive cough and trouble breathing. Patient woke up in the morning with worsening trouble breathing so he called EMS, EMS gave him a DuoNeb treatment on route here. Notably he was hypoxic to 84% and required O2 enroute as well. Seen on O2 in ED, still feeling short of breath, weak. Patient denies any fever. Patient had not had Covid 19 vaccinations. He notes no recent sick contacts Patient was admitted here a few months ago, tested negative for COVID-19, but was diagnosed with recurrence of PE and placed back on anticoagulation and discharged home. Patient denies any headache, no abdominal pain, no nausea vomiting. Patient denies any chest pain. Chest radiograph with patchy infrahilar opacities, this appears similar to prior November 2020 radiograph. EKG sinus rhythm [address] segment or T wave abnormalities. Actually T wave abnormalities on prior EKG resolved. BNP 322, troponin 0, CR 1.2, CBC with no abnormalities and metabolic panel with no other abnormalities. Admitted for further care. Still hypoxic today. He is requesting Percocets and cough syrup. Also antibiotics. He tells me he does not think he needs to take the Eliquis as scheduled. I have advised him this is absolutely necessary for life. Vitals/I&O Vitals/I&O: Vital Signs Date Time Temp Pulse Resp B/P (MAP) Pulse Ox O2 Delivery O2 Flow Rate FiO2 03/27/21 08:55 19 Nasal Cannula 4.0 03/27/21 08:06 95 03/27/21 07:00 97.7 66 173/98 (123) 97.7 I & O 03/26/21 03/26/21 03/27/21 15:00 23:00 07:00 Intake Total 360 ml Output Total 700 ml Balance -340 ml Physical Exam General: Alert, Oriented X3, Cooperative, moderate distress Lungs: Clear Abdomen: Normal bowel sounds, Soft, No tenderness, No hepatosplenomegaly, No masses Extremities: No clubbing, No cyanosis, No edema, Normal pulses, No tenderness/swelling Skin: No rashes, No breakdown, No significant lesion Labs Labs: Laboratory Tests Test 03/26/21 16:36 03/26/21 19:25 03/27/21 07:31 Glucose (Fingerstick) 252 mg/dL (70-99) 185 mg/dL (70-99) 184 mg/dL (70-99) Assessment and Plan Assessmemt and Plan Problems Medical Problems: (1) COPD with exacerbation Status: Acute (2) Person under investigation for COVID-19 Status: Acute Comment Review of Relevant I have reviewed the following items stephane (where applicable) has been applied. Medications: Current Medications Medications (Trade) Dose Ordered Sig/Ashli Route PRN Reason Start Time Stop Time Status Last Admin Dose Admin Albuterol/ Ipratropium (Duoneb) 3 ml RTQID NEB 03/26/21 16:00 03/27/21 08:03 Budesonide (Pulmicort) 0.5 mg RTBID NEB 03/26/21 20:00 03/27/21 08:03 Tramadol HCl (Ultram) 50 mg PRN Q6HRS PRN PO PAIN 03/26/21 16:15 03/27/21 08:55 Methylprednisolone Sodium Succinate (SOLU-Medrol 40MG VIAL) 80 mg Q8HRS IV 03/26/21 16:30 03/27/21 05:56 Insulin Human Lispro (HumaLOG) 0-7 UNITS TIDWMEALS SQ 03/26/21 17:00 03/27/21 09:00 Guaifenesin/ Codeine Phosphate (Robitussin Ac) 5 ml PRN Q6HRS PRN PO COUGH 03/26/21 18:45 03/27/21 08:54 Zolpidem Tartrate (Ambien) 5 mg PRN QHS PRN PO INSOMNIA 03/26/21 18:45 03/26/21 21:41 Diazepam (Valium) 10 mg ONCE ONCE PO 03/26/21 21:58 03/26/21 21:59 DC 03/26/21 22:06 Justifications for Admission Other Justification SONNY BUI MD Mar 27, 2021 11:40
[2021-03-27] MEDS: ANTI-COAG MONITOR BY PHARMACY. MC PRN (12:30)
[2021-03-27 15:00] VITALS: BP 173/79
[2021-03-27] MEDS: BENZONATATE 100 MG CAPSULE. PO PRN (15:22)
[2021-03-27] MEDS: hydrALAZINE 20 MG/ML VIAL. IVP PRN (17:22)
[2021-03-27 19:00] VITALS: BP 153/80
[2021-03-27] MEDS: ACETAMINOPHEN 325 MG TABLET. PO PRN (22:37)
[2021-03-27] MEDS: BENZOCAINE/MENTHOL LOZENGE. PO PRN (22:37)
[2021-03-27] MEDS: ZOLPIDEM 5 MG TABLET. PO PRN (22:38)
[2021-03-27] MEDS: diazePAM 5 MG TABLET PO SCH (22:38)
[2021-03-27 23:00] VITALS: BP 143/68
[2021-03-28 03:00] VITALS: BP 156/85
[2021-03-28] MEDS: methylPREDNISolone SOD SUCC PF 40 MG/ML VIAL. IV SCH ×3 (06:19→21:01)
[2021-03-28] MEDS: BENZOCAINE/MENTHOL LOZENGE. PO PRN ×2 (06:26→21:11)
[2021-03-28] MEDS: guaiFENesin/CODEINE 100mg/10mg 5 ML LIQUID PO PRN ×3 (06:26→18:43)
[2021-03-28 07:00] VITALS: BP 198/107
[2021-03-28] MEDS: IPRATRPIUM/ALBUTEROL 0.5/2.5MG 3 ML NEBU. NEB SCH ×4 (07:37→20:34)
[2021-03-28] MEDS: BUDESONIDE 0.5 MG/2 ML NEBU. NEB SCH ×2 (07:38→20:34)
--- NOTE | 2021-03-28 08:42 | PDOC ---
[facility] PROGRESS NOTE Date of Service DOS: DATE: 03/28/21 TIME: 08:41 Chief Complaint Chief Complaint A/P: Acute hypoxic respiratory failure - likely COPD exacerbation in the setting of continued smoking. Given steroids and nebulizers. No claudication for antibiotics given no change in sputum no clear sign of pneumonia. Previous history of deep venous thrombosis and pulmonary embolism - on lifelong anticoagulation with eliquis. Has previously stopped his anticoagulation and was readmitted for this November 2020 Polysubstance use - counseled on cessation Tobacco dependence - counseled on cessation Emphysema - with acute COPD exacerbation. Will give nebs, steroids Anxiety - counseled, atarax prn HTN - cont meds PUD - PPI Urethral strictures s/p reconstruction FEN - General diet PPX - eliquis CODE - FULL CODE Dispo - inpatient History of Present Illness History of Present Illness Mr Titus is a 65 yo M w/PMHx anxiety, COPD, DM2, HTN, PUD, urethral strictures s/p reconstruction, smoker, polysubtance abuse (prior cocaine user), and DVT/PE who presented to ER due to 5-day history of nonproductive cough and trouble breathing. Patient woke up in the morning with worsening trouble breathing so he called EMS, EMS gave him a DuoNeb treatment on route here. Notably he was hypoxic to 84% and required O2 enroute as well. Seen on O2 in ED, still feeling short of breath, weak. Patient denies any fever. Patient had not had Covid 19 vaccinations. He notes no recent sick contacts Patient was admitted here a few months ago, tested negative for COVID-19, but was diagnosed with recurrence of PE and placed back on anticoagulation and discharged home. Patient denies any headache, no abdominal pain, no nausea vomiting. Patient denies any chest pain. Chest radiograph with patchy infrahilar opacities, this appears similar to prior November 2020 radiograph. EKG sinus rhythm [address] segment or T wave abnormalities. Actually T wave abnormalities on prior EKG resolved. BNP 322, troponin 0, CR 1.2, CBC with no abnormalities and metabolic panel with no other abnormalities. Admitted for further care. 03/27: Still hypoxic today. He is requesting Percocets and cough syrup. Also antibiotics. He tells me he does not think he needs to take the Eliquis as scheduled. I have advised him this is absolutely necessary for life. Afebrile. Still with dry, non-productive cough. He has removed his O2 and telemetry monitoring to "sleep better". Sore throat and pain. Notably with thrush. BP up overnight as well. Plan: Nystatin Swish and swallow Add amlodipine, losartan substituted for his home lisinopril given his chronic cough Vitals/I&O Vitals/I&O: Vital Signs Date Time Temp Pulse Resp B/P (MAP) Pulse Ox O2 Delivery O2 Flow Rate FiO2 03/28/21 07:39 99 Nasal Cannula 4.0 03/28/21 07:00 104 24 198/107 (137) 03/28/21 03:00 97.9 97.9 I & O 03/27/21 03/27/21 03/28/21 15:00 23:00 07:00 Intake Total 800 ml 900 ml 0 ml Output Total 2000 ml Balance 800 ml 900 ml -2000 ml Physical Exam General: Alert, Oriented X3, Cooperative, moderate distress Lungs: Clear Abdomen: Normal bowel sounds, Soft, No tenderness, No hepatosplenomegaly, No masses Extremities: No clubbing, No cyanosis, No edema, Normal pulses, No tender ness/swelling Skin: No rashes, No breakdown, No significant lesion Labs Labs: Laboratory Tests Test 03/27/21 11:38 03/27/21 15:46 03/27/21 20:07 03/28/21 08:05 Glucose (Fingerstick) 155 mg/dL (70-99) 159 mg/dL (70-99) 159 mg/dL (70-99) 172 mg/dL (70-99) Assessment and Plan Assessmemt and Plan Problems Medical Problems: (1) COPD with exacerbation Status: Acute (2) Person under investigation for COVID-19 Status: Acute Comment Review of Relevant I have reviewed the following items stephane (where applicable) has been applied. Medications: Current Medications Medications (Trade) Dose Ordered Sig/Ashli Route PRN Reason Start Time Stop Time Status Last Admin Dose Admin Diazepam (Valium) 10 mg QHS PO 03/27/21 21:00 03/27/21 22:38 Throat Lozenges (Cepacol Sore Throat Lozenge) 1 roseanne PRN Q1HR PRN PO SORE THROAT 03/27/21 21:30 03/28/21 06:26 Justifications for Admission Other Justification SONNY BUI MD Mar 28, 2021 08:42
[2021-03-28] MEDS ORDERED: SODIUM CHL/ALOE VERA NASAL GEL 14.1GM TUBE. NS PRN (08:45)
[2021-03-28] MEDS: NYSTATIN 100,000 UNITS/ML 5 ML ORAL.SUSP. SWSW SCH ×4 (09:00→21:01)
[2021-03-28] MEDS: BENZONATATE 100 MG CAPSULE. PO PRN ×2 (09:00→21:11)
[2021-03-28] MEDS: APIXABAN 5 MG TABLET. PO SCH ×2 (09:00→21:01)
[2021-03-28] MEDS: amLODIPine BESYLATE 5 MG TABLET PO SCH (09:00)
[2021-03-28] MEDS: LOSARTAN POTASSIUM 50 MG TABLET. PO SCH (09:01)
[2021-03-28] MEDS: INSULIN LISPRO 300 UNITS/3 ML VIAL. SQ SCH ×3 (09:06→17:00)
[2021-03-28 11:00] VITALS: BP 168/82
--- NOTE | 2021-03-28 11:42 | NUR ---
SW following. Discussed with RN, pt from home, 4L (does not use at home), cardiac diet, COVID-19 negative. Possible 6 minute walk today. SW awaiting confirmation, no order as of yet. SW will continue to follow.
[2021-03-28] MEDS: ANTI-COAG MONITOR BY PHARMACY. MC PRN (12:35)
[2021-03-28] MEDS: hydrALAZINE 20 MG/ML VIAL. IVP PRN (12:59)
[2021-03-28 15:00] VITALS: BP 145/76
[2021-03-28] MEDS: ACETAMINOPHEN 325 MG TABLET. PO PRN (15:04)
[2021-03-28] MEDS: traMADol 50 MG TABLET PO PRN (18:44)
[2021-03-28 19:00] VITALS: BP 160/92
[2021-03-28] MEDS: diazePAM 5 MG TABLET PO SCH (21:02)
[2021-03-28] MEDS: ZOLPIDEM 5 MG TABLET. PO PRN (21:11)
[2021-03-29 03:33] VITALS: BP 148/91
[2021-03-29] MEDS: guaiFENesin/CODEINE 100mg/10mg 5 ML LIQUID PO PRN (04:03)
[2021-03-29] MEDS: traMADol 50 MG TABLET PO PRN (04:03)
[2021-03-29] MEDS: methylPREDNISolone SOD SUCC PF 40 MG/ML VIAL. IV SCH (06:10)
[2021-03-29 07:00] VITALS: BP 146/90
[2021-03-29] MEDS: INSULIN LISPRO 300 UNITS/3 ML VIAL. SQ SCH ×2 (08:00→12:08)
[2021-03-29] MEDS: IPRATRPIUM/ALBUTEROL 0.5/2.5MG 3 ML NEBU. NEB SCH ×3 (08:00→15:23)
[2021-03-29] MEDS: APIXABAN 5 MG TABLET. PO SCH (08:21)
[2021-03-29] MEDS: amLODIPine BESYLATE 5 MG TABLET PO SCH (08:22)
[2021-03-29] MEDS: NYSTATIN 100,000 UNITS/ML 5 ML ORAL.SUSP. SWSW SCH ×2 (08:22→13:00)
[2021-03-29] MEDS: LOSARTAN POTASSIUM 50 MG TABLET. PO SCH (08:23)
[2021-03-29 11:00] VITALS: BP 166/96
[2021-03-29] MEDS: BUDESONIDE 0.5 MG/2 ML NEBU. NEB SCH (11:29)
[2021-03-29] MEDS ORDERED: DOXY100C14 PO (14:12)
[2021-03-29] MEDS ORDERED: APIX5TAB PO (14:12)
[2021-03-29] MEDS ORDERED: AMLO-186 PO (14:12)
[2021-03-29] MEDS ORDERED: PRED20TA PO (14:12)
[2021-03-29] MEDS ORDERED: [UNRECOGNIZED DRUG - CODE] PO (14:12)
[2021-03-29] MEDS ORDERED: LOSA-73 PO (14:12)
[2021-03-29] MEDS ORDERED: PANT40TA77 PO (14:14)
[2021-03-29] MEDS: BENZOCAINE/MENTHOL LOZENGE. PO PRN (14:16)
--- NOTE | 2021-03-29 14:17 | PDOC ---
[facility] PROGRESS NOTE Date of Service DOS: DATE: 03/29/21 TIME: 14:14 Chief Complaint Chief Complaint A/P: Acute hypoxic respiratory failure - likely COPD exacerbation in the setting of continued smoking. Given steroids and nebulizers. No claudication for antibiotics given no change in sputum no clear sign of pneumonia. Previous history of deep venous thrombosis and pulmonary embolism - on lifelong anticoagulation with eliquis. Has previously stopped his anticoagulation and was readmitted for this November 2020 Polysubstance use - counseled on cessation Tobacco dependence - counseled on cessation Emphysema - with acute COPD exacerbation. Will give nebs, steroids Anxiety - counseled, atarax prn HTN - cont meds PUD - PPI Urethral strictures s/p reconstruction FEN - General diet PPX - eliquis CODE - FULL CODE Dispo - inpatient History of Present Illness History of Present Illness Mr Titus is a 65 yo M w/PMHx anxiety, COPD, DM2, HTN, PUD, urethral strictures s/p reconstruction, smoker, polysubtance abuse (prior cocaine user), and DVT/PE who presented to ER due to 5-day history of nonproductive cough and trouble breathing. Patient woke up in the morning with worsening trouble breathing so he called EMS, EMS gave him a DuoNeb treatment on route here. Notably he was hypoxic to 84% and required O2 enroute as well. Seen on O2 in ED, still feeling short of breath, weak. Patient denies any fever. Patient had not had Covid 19 vaccinations. He notes no recent sick contacts Patient was admitted here a few months ago, tested negative for COVID-19, but was diagnosed with recurrence of PE and placed back on anticoagulation and discharged home. Patient denies any headache, no abdominal pain, no nausea vomiting. Patient denies any chest pain. Chest radiograph with patchy infrahilar opacities, this appears similar to prior November 2020 radiograph. EKG sinus rhythm [address] segment or T wave abnormalities. Actually T wave abnormalities on prior EKG resolved. BNP 322, troponin 0, CR 1.2, CBC with no abnormalities and metabolic panel with no other abnormalities. Admitted for further care. 03/27: Still hypoxic today. He is requesting Percocets and cough syrup. Also antibiotics. He tells me he does not think he needs to take the Eliquis as scheduled. I have advised him this is absolutely necessary for life. 03/28: Afebrile. Still with dry, non-productive cough. He has removed his O2 and telemetry monitoring to "sleep better", had requested from on-call coverage for valium. Sore throat and pain. Notably with thrush. BP up overnight as well. Feeling better still with a little bit of a dry cough. Walked with me his O2 sats maintained between 89 and 92%. Minimal desaturations to 88%. Him better is requesting promethazine with codeine cough syrup Valium Xanax and 10 mg oxycodones. I made it very clear that the promethazine with codeine cough syrup as indicated in the other medications or not as he is not been hospitalized for pain or anxiety and has an active prescription for both Ambien and Xanax have been filled within the last 30 days. Smoking cessation and secondhand smoke decreased exposure emphasized. Plan: Prednisone Add amlodipine, losartan substituted for his home lisinopril given his chronic cough Brenda has O2 for him, but he has lost it. At this time he does not need it no O2 but has definitely qualified for long-term O2 previously I suspect if he exerted himself for more than 6 minutes he would continue to require home O2. He needs nocturnal oximetry or sleep study as well as I did not assess his nocturnal oxygen. Vitals/I&O Vitals/I&O: Vital Signs Date Time Temp Pulse Resp B/P (MAP) Pulse Ox O2 Delivery O2 Flow Rate FiO2 03/29/21 11:31 Room Air 03/29/21 11:00 97.8 90 20 166/96 (119) 98 4.0 97.8 Physical Exam General: Alert, Oriented X3, Cooperative, moderate distress Lungs: Clear Abdomen: Normal bowel sounds, Soft, No tenderness, No hepatosplenomegaly, No masses Extremities: No clubbing, No cyanosis, No edema, Normal pulses, No tenderness/swelling Skin: No rashes, No breakdown, No significant lesion Labs Labs: Laboratory Tests Test 03/28/21 16:23 03/28/21 20:17 03/29/21 07:10 03/29/21 11:01 Glucose (Fingerstick) 148 mg/dL (70-99) 156 mg/dL (70-99) 150 mg/dL (70-99) 259 mg/dL (70-99) Assessment and Plan Assessmemt and Plan Problems Medical Problems: (1) COPD with exacerbation Status: Acute (2) Person under investigation for COVID-19 Status: Acute Comment Review of Relevant I have reviewed the following items stephane (where applicable) has been applied. Justifications for Admission Other Justification SONNY BUI MD March 29, 2021 14:17
--- NOTE | 2021-03-29 14:20 | PDOC3 ---
Discharge Summary Visit Information Date of Admission: Mar 26, 2021 Date of Discharge: March 29, 2021 Admitting Diagnosis: COPD with acute exacerbation Final Diagnosis Problems Medical Problems: (1) COPD with exacerbation Status: Acute (2) Person under investigation for COVID-19 Status: Acute Brief Hospital Course Allergies Allergies Coded Allergies Type Severity Reaction Last Updated Verified Iodinated Contrast Media Allergy Intermediate Hives 12/27/20 Yes Vital Signs Vital Signs Date Time Temp Pulse Resp B/P (MAP) Pulse Ox O2 Delivery O2 Flow Rate FiO2 03/29/21 11:31 Room Air 03/29/21 11:00 97.8 90 20 166/96 (119) 98 4.0 97.8 Lab Results Laboratory Tests Test 03/27/21 15:46 03/27/21 20:07 03/28/21 08:05 03/28/21 11:50 Glucose (Fingerstick) 159 mg/dL (70-99) 159 mg/dL (70-99) 172 mg/dL (70-99) 133 mg/dL (70-99) Test 03/28/21 16:23 03/28/21 20:17 03/29/21 07:10 03/29/21 11:01 Glucose (Fingerstick) 148 mg/dL (70-99) 156 mg/dL (70-99) 150 mg/dL (70-99) 259 mg/dL (70-99) Laboratory Tests Test 03/28/21 16:23 03/28/21 20:17 03/29/21 07:10 03/29/21 11:01 Glucose (Fingerstick) 148 mg/dL (70-99) 156 mg/dL (70-99) 150 mg/dL (70-99) 259 mg/dL (70-99) Brief Hospital Course Mr Titus is a 65 yo M w/PMHx anxiety, COPD, DM2, HTN, PUD, urethral strictures s/p reconstruction, smoker, polysubtance abuse (prior cocaine user), and DVT/PE who presented to ER due to 5-day history of nonproductive cough and trouble breathing. Patient woke up in the morning with worsening trouble breathing so he called EMS, EMS gave him a DuoNeb treatment on route here. Notably he was hypoxic to 84% and required O2 enroute as well. Seen on O2 in ED, still feeling short of breath, weak. Patient denies any fever. Patient had not had Covid 19 vaccinations. He notes no recent sick contacts Patient was admitted here a few months ago, tested negative for COVID-19, but was diagnosed with recurrence of PE and placed back on anticoagulation and discharged home. Patient denies any headache, no abdominal pain, no nausea vomiting. Patient denies any chest pain. Chest radiograph with patchy infrahilar opacities, this appears similar to prior November 2020 radiograph. EKG sinus rhythm [address] segment or T wave abnormalities. Actually T wave abnormalities on prior EKG resolved. BNP 322, troponin 0, CR 1.2, CBC with no abnormalities and metabolic panel with no other abnormalities. Admitted for further care. 03/27: Still hypoxic today. He is requesting Percocets and cough syrup. Also antibiotics. He tells me he does not think he needs to take the Eliquis as scheduled. I have advised him this is absolutely necessary for life. 03/28: Afebrile. Still with dry, non-productive cough. He has removed his O2 and telemetry monitoring to "sleep better", had requested from on-call coverage for valium. Sore throat and pain. Notably with thrush. BP up overnight as well. Feeling better still with a little bit of a dry cough. Walked with me his O2 sats maintained between 89 and 92%. Minimal desaturations to 88%. Him better is requesting promethazine with codeine cough syrup Valium Xanax and 10 mg oxycodones. I made it very clear that the promethazine with codeine cough syrup as indicated in the other medications or not as he is not been hospitalized for pain or anxiety and has an active prescription for both Ambien and Xanax have been filled within the last 30 days. Smoking cessation and secondhand smoke decreased exposure emphasized. Plan: Prednisone Add amlodipine, losartan substituted for his home lisinopril given his chronic cough Brenda has O2 for him, but he has lost it. At this time he does not need it no O2 but has definitely qualified for long-term O2 previously I suspect if he exerted himself for more than 6 minutes he would continue to require home O2. He needs nocturnal oximetry or sleep study as well as I did not assess his nocturnal oxygen. 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 Given steroids and nebulizers. No claudication for antibiotics given no change in sputum no clear sign of pneumonia. Previous history of deep venous thrombosis and pulmonary embolism - on lifelong anticoagulation with eliquis. Has previously stopped his anticoagulation and was readmitted for this November 2020 Polysubstance use - counseled on cessation Tobacco dependence - counseled on cessation Emphysema - with acute COPD exacerbation. Will give nebs, steroids Anxiety - counseled, atarax prn HTN - cont meds PUD - PPI Urethral strictures s/p reconstruction Greater than 30 minutes spent on d/c home with self care. Discharge Information Condition at Discharge: Improved Follow Up: Weeks (1) Disposition/Orders: D/C to Home Scheduled Amlodipine Besylate (Amlodipine Besylate) 5 Mg Tablet, 5 MG PO DAILY for HTN for 30 Days, #30 Ref 5 Prescribed by: SONNY BUI MD on 03/29/211411 Apixaban (Eliquis) 5 Mg Tablet, 5 MG PO BID for Pulmonary embolism for 30 Days, #60 Ref 5 Prescribed by: SONNY BUI MD on 03/29/211411 Doxycycline Monohydrate (Doxycycline Monohydrate) 100 Mg Capsule, 1 CAP PO BID for Bronchitis for 5 Days, #10 Prescribed by: SONNY BUI MD on 03/29/21 141 Losartan Potassium (Cozaar ) 50 Mg Tablet, 50 MG PO DAILY for HTN for 30 Days, #30 Ref 5 Prescribed by: SONNY BUI MD on 03/29/211411 Pantoprazole Sodium (Protonix ) 40 Mg Tablet.dr, 40 MG PO DAILYAC for GERD for 30 Days, #30 Ref 5 Prescribed by: SONNY BUI MD on 03/29/21 1414 Prednisone (Prednisone) 20 Mg Tablet, 1 TAB PO DAILY for COPD for 5 Days, #5 Prescribed by: SONNY BUI MD on 03/29/212 Scheduled PRN Albuterol Sulfate (Proair Hfa Inhaler) 8.5 Gm Hfa.aer.ad, 2 PUFF IH PRN Q4-6HRS PRN for wheezing for 21 Days, #1 Ref 0 Prescribed by: JOSE HURST APRN on 01/08/20 1131 Last Action: Continued on 03/26/21 0620 by SONNY BUI MD Benzonatate (Tessalon Perle) 100 Mg Capsule, 1 CAP PO TID PRN for COUGH, #15 Prescribed by: CORINNE OROURKE MD on 12/30/20 1000 Last Action: Continued on 03/26/21 0620 by SONNY BUI MD Diphenhydramine Hcl (Benadryl) 25 Mg Capsule, 25 MG PO PRN Q6HRS PRN for ALLERGIES, #20 Prescribed by: AUBREE VARNER D.O. on 10/30/16 0323 Promethazine/Phenyleph/Codeine (Promethazine Vc-Codeine Soln) 473 Ml Syrup, 10 ML PO PRN Q4HRS PRN for COUGH for 20 Days, #240 Ref 1 Prescribed by: SONNY BUI MD on 03/29/21 1413 Discontinued Medications Alprazolam (Xanax) 0.25 Mg Tablet, 0.25 MG PO, (Reported) Entered as Reported by: CHRISTEN SILVESTRE on 02/14/14 1244 Hydrocodone/Apap 5-325 (Bracey 5-325 Tablet) 1 Each Tablet, 1 TAB PO QID PRN for PAIN, #10 Prescribed by: TIFFANY HUDDLESTON MD on 05/10/17 0002 Lisinopril (Lisinopril) 20 Mg Tablet, 1 TAB PO DAILY for HTN, #30 Ref 1 Prescribed by: CORINNE OROURKE MD on 12/30/20 1000 Last Action: Reviewed on 03/26/211729 by TAMEKA BRENNAN RN Justicifation of Admission Dx: Justifications for Admission: Justification of Admission Dx: Yes SONNY BUI MD March 29, 2021 14:20
[2021-03-29 15:00] VITALS: BP 143/81
--- NOTE | 2021-03-29 16:53 | NUR ---
Discharge Note: VANNESSA ZAMORA Discharge instructions and discharge home medications reviewed with Patient and a copy given. All questions have been answered and understanding verbalized. The following instructions and handouts were given: follow up instructions, medication education. Discontinued lines and drains: 22 gauge left AC, tip intact. patient tolerated well. Patient discharged to home with self care via taxi cab.
== END 2021-03-29 17:15 | disposition home or self-care (01) | DRG 189 ==
LOC: ER 04:51 → ED HOLD 07:49 → 6 SOUTH 08:45
PROVIDERS: ADMIT Internal Medicine; ATTEND Internal Medicine
PROC: 5A0935A Assistance with Respiratory Ventilation, Less than 24 Consecutive Hours, High Flow/Velocity Cannula (ICD-10-PCS; principal; 2021-03-26)
DX: J96.01 Acute respiratory failure with hypoxia (principal); J43.9 Emphysema, unspecified; F17.210 Nicotine dependence, cigarettes, uncomplicated; Z79.01 Long term (current) use of anticoagulants; Z86.711 Personal history of pulmonary embolism; Z86.718 Personal history of other venous thrombosis and embolism; F41.9 Anxiety disorder, unspecified; I10 Essential (primary) hypertension; K27.9 Peptic ulcer, site unspecified, unspecified as acute or chronic, without hemorrhage or perforation; N35.919 Unspecified urethral stricture, male, unspecified site; Z20.822 Contact with and (suspected) exposure to COVID-19; B37.9 Candidiasis, unspecified; E11.51 Type 2 diabetes mellitus with diabetic peripheral angiopathy without gangrene; Z82.49 Family history of ischemic heart disease and other diseases of the circulatory system; Z87.11 Personal history of peptic ulcer disease; G89.29 Other chronic pain; Z79.899 Other long term (current) drug therapy; Z71.6 Tobacco abuse counseling
CPT/HCPCS: 36415; 71045; 80053; 82962; 83735; 83880; 84484; 85025; 93005; 94640; 94760; 96374; 99285; J0360; J1815; J2920; J2930; U0003; U0005; G0378; J7626